=== PATIENT | male | born 1955 | race Caucasian/White ===

== ENCOUNTER 2018-07-24 22:09 | Inpatient (IN) ==
[2018-07-24 22:41] LABS: Microscopic, Urine URINE MICROSCOPIC (MICROSCOPIC)
[2018-07-24 22:43] LABS: Basophils % 1.1 % (0.1-2.0); Eosinophils % 0.4 % (0.1-12.0); Lymphocytes # 0.3 K/mm3 (0.7-4.5); Mean Corpuscular Hemoglobin 31.9 pg (27.0-31.2); Mean Corpuscular Volume 102.9 fl (80-94); Mean Platelet Volume 9.6 fl (7.4-10.4); Monocytes # 0.1 K/mm3 (0.1-1.0); Monocytes % 3.6 % (1.7-9.3); Neutrophils # 1.8 K/mm3 (1.8-7.8); Neutrophils % 79.9 % (37.0-80.0); Platelet Count 110 K/mm3 (142-424); Red Blood Count 2.03 M/mm3 (4.60-6.20); Red Cell Distribution Width 20.3 % (11.5-17.5); White Blood Count 2.2 K/mm3 (4.8-10.8)
[2018-07-24 22:44] LABS: Appearance,Urine CLEAR (Clear); Bilirubin,Urine Negative (Negative); Blood, Urine TRACE-L (Negative); Color,Urine YELLOW (Yellow); Glucose,Urine (UA) Negative (Negative); Ketones,Urine Negative (Negative); Leukocyte Esterase,Urine Negative (Negative); PH,Urine 5.5 (5.0-8.5); Protein,Urine TRACE (Negative); Specific Gravity, Urine 1.025 (1.005-1.030)
[2018-07-24 22:46] LABS: Hematocrit 20.9 % (42.0-52.0); Hemoglobin 6.5 g/dL (14.1-18.0)
--- NOTE | 2018-07-24 22:59 | Emergency Department Note ---
ED Disposition Clinical Impression: Severe sepsis, Septic shock, Thrombocytopenia, Renal insufficiency, Elevated erythrocyte sedimentation rate, Elevated C-reactive protein (CRP), Hepatomegaly, Splenomegaly, Elevated alkaline phosphatase level, Pleural effusion, Pulmonary mass, Aorto-iliac atherosclerosis, Osseous metastasis, Adenopathy Hypothyroidism Qualifiers: Hypothyroidism type: acquired Qualified Code(s): E03.9 - Hypothyroidism, unspecified Anemia Qualifiers: Anemia type: unspecified type Qualified Code(s): D64.9 - Anemia, unspecified Leukopenia Qualifiers: Leukopenia type: unspecified Qualified Code(s): D72.819 - Decreased white blood cell count, unspecified Schizophrenia Qualifiers: Schizophrenia type: unspecified Qualified Code(s): F20.9 - Schizophrenia, unspecified Hyperlipidemia Qualifiers: Hyperlipidemia type: unspecified Qualified Code(s): E78.5 - Hyperlipidemia, unspecified Disposition: Admitted As Inpatient Condition on Discharge: Critical Referrals: Shayne Black MD [Primary Care Provider] - - Critical Care Critical Care Time: Yes Attestation: On 07/24/18, the high probability of a clinically significant, sudden or life threatening deterioration of the following system(s) required my full and direct attention, intervention and personal management. The time I documented below is in addition to time spent performing reported procedures but includes the following listed in this critical care notation. Total Critical Care Time: 90 Vital system(s) involved:: Shock (Septic) My critical care processes included: Assessment & monitoring of V/S, Initial and Re-exams, Data Review/Interpretation, Coordinating Care, Medication Orders and management, Documentation Medical Decision Making - Medical Records Medical records reviewed: Yes: I reviewed the patient's medical records. - Smith Inquiry Pt receiving controlled substance: No Vital Signs: 07/24/18 22:09 07/24/18 22:47 07/25/18 00:16 Temperature 99.6 F 98.1 F Temperature Source Rectal Oral Pulse Rate [Right Radial] 108 H 97 H 83 Respiratory Rate 18 18 17 Blood Pressure [Right Arm] 101/58 L 91/49 L 91/55 L Blood Pressure Mean [Right Arm] 72 63 67 Blood Pressure Source [Right Arm] Automatic Cuff Automatic Cuff Blood Pressure Position [Right Arm] Sitting Supine 02 Sat by Pulse Oximetry 97 97 99 Oxygen Delivery Method Room Air Oxygen Flow Rate (LPM) 07/25/18 00:35 07/25/18 01:55 07/25/18 02:08 Temperature 98.8 F Temperature Source Oral Pulse Rate [Right Radial] 82 82 81 Respiratory Rate 22 18 18 Blood Pressure [Right Arm] 91/52 L 86/55 L 88/57 L Blood Pressure Mean [Right Arm] 65 65 67 Blood Pressure Source [Right Arm] Automatic Cuff Automatic Cuff Automatic Cuff Blood Pressure Position [Right Arm] Supine Sitting Supine 02 Sat by Pulse Oximetry 98 99 99 Oxygen Delivery Method Nasal Cannula Nasal Cannula Oxygen Flow Rate (LPM) 2 07/25/18 02:30 07/25/18 03:00 07/25/18 03:46 Temperature Temperature Source Pulse Rate [Right Radial] 90 87 86 Respiratory Rate 16 Blood Pressure [Right Arm] 83/45 L 71/48 L 89/53 L Blood Pressure Mean [Right Arm] 57 55 65 Blood Pressure Source [Right Arm] Blood Pressure Position [Right Arm] 02 Sat by Pulse Oximetry 93 L 96 96 Oxygen Delivery Method Room Air Oxygen Flow Rate (LPM) - Lab Data Lab results reviewed: Yes: I reviewed the patient's lab results. Lab Results 07/24/18 22:34: Urine Color Yellow, Urine Appearance Clear, Urine pH 5.5, Ur Specific [place] 1.025, Urine Protein Trace, Urine Glucose (UA) Negative, Urine Ketones Negative, Urine Blood Trace-l, Urine Nitrate Negative, Urine Bilirubin Negative, Urine Urobilinogen 2.0, Ur Leukocyte Esterase Negative, Urine WBC 3-5, Ur Squamous Epith Cells Occasional, Urine Bacteria Trace, Urine Mucus Trace 07/24/18 22:34: WBC 2.2 L, RBC 2.03 L, Hgb 6.5 L*, Hct 20.9 L*, MCV 102.9 H, MCH 31.9 H, MCHC 31.0 L, RDW 20.3 H, Plt Count 110 L, MPV 9.6, Neut % (Auto) 79.9, Lymph % (Auto) 15.0, [place] % (Auto) 3.6, Eos % (Auto) 0.4, Baso % (Auto) 1.1, Neut # (Auto) 1.8, Lymph # (Auto) 0.3 L, [place] # (Auto) 0.1, Eos # (Auto) 0.0, Baso # (Auto) 0.0, ESR 87 H 07/24/18 22:34: Sodium 135 L, Potassium 3.8, Chloride 100, Carbon Dioxide 18 L, Anion Gap 20.8 H, BUN 21 H, Creatinine 1.55 H, Estimated Creat Clear 48, Estimated GFR 46 L, Est GFR ( Amer) 55 L, Glucose 141 H, Calcium 9.4, Total Bilirubin 0.8, AST 148 H, ALT 52, Alkaline Phosphatase 293 H, Troponin I < 0.02, C-Reactive Protein 5.3 H, Total Protein 5.8 L, Albumin 2.1 L, Globulin 3.7 H, Albumin/Globulin Ratio 0.6 L 07/24/18 22:34: Lactate 7.3 H 07/24/18 22:34: TSH 5.67 H, Thyroxine (T4) 5.8 07/24/18 22:34: Amylase 44, Lipase 59 L 07/25/18 00:00: Influenza Type A Ag Negative, Influenza Type B Ag Negative 07/25/18 01:25: Stool Occult Blood Negative 07/25/18 02:05: Lactate 3.7 H Result diagrams: 07/24/18 22:34 07/24/18 22:34 Orders (Tests/Meds): ED MEDICATIONS Generic Name Dose Route Start Last Admin Trade Name Freq PRN Reason Stop Dose Admin Sodium Chloride 1,000 mls @ 999 mls/hr 07/24/18 22:15 07/25/18 00:18 Sod Chlor 0.9% 1000ml Bag IV 07/24/18 23:15 999 mls/hr .Q1H1M ASHIA Administration Lactated Ringer's 1,000 mls @ 999 mls/hr 07/24/18 22:45 07/24/18 22:32 Lactated Ringer's 1000 Ml Bag IV 07/24/18 23:45 999 mls/hr .Q1H1M ASHIA Administration Sodium Chloride 500 mls @ 999 mls/hr 07/25/18 00:45 07/25/18 01:58 Sod Chlor 0.9% 1000ml Bag IV 07/25/18 01:15 Not Given .Q31M ASHIA Sodium Chloride 10 ml 07/24/18 22:15 Saline Flush 10ml Syringe IV 08/23/18 22:14 NEEDED PRN Maintain IV Site Discontinued Medications Generic Name Dose Route Start Last Admin Trade Name Freq PRN Reason Stop Dose Admin Sodium Chloride 2,040 mls @ 1,020 mls/hr 07/25/18 00:49 07/25/18 00:51 Sod Chlor 0.9% 1000ml Bag 30 ml/kg infuse over 2 hr (2040 ml) 07/25/18 02:48 1,020 mls/hr IV Administration .Q2H ONE Ioversol 75 ml 07/25/18 03:48 07/24/18 23:40 Rad-Optiray 350 100ml Vial IV 07/25/18 03:49 75 ml ONCE ONE Administration Protocol Sodium Chloride 10 ml 07/25/18 03:48 07/24/18 23:45 Rad-Saline Flush 10ml Syringe IV 07/25/18 03:49 10 ml ONCE ONE Administration ORDERS Category Date Time Status CT abdomen pelvis w con Stat Cat Scan 07/24/18 22:[address] chest w con Routine Cat Scan 07/24/18 23:43 Ordered XR chest portable Stat Exams 07/25/18 Taken Diarrhea 6-11 Panel, Cdiff PCR Stat Lab 07/24/18 22:17 Ordered Peripheral Smear Review Routine Lab 07/24/18 22:34 Received Blood Culture Stat Micro 07/24/18 22:34 Received - Radiology Data #1 Image Reviewed: Yes I reviewed the patient's radiology image Preliminary Findings: Abnormal (prob mass) - CT Data CT Scan: Abdomen, Pelvis, Chest Time Received: 03:[address] Reviewed: Yes: I have viewed the radiologist's interpretation Preliminary Findings: Abnormal (see report ) - ECG Data Tracing #1 Arrhythmias present: sinus tach Ischemic changes: non-specific ST-T wave changes - Tissue Perfus/Sepsis Re-Eval Reperfusion Exam Performed: Yes Date Performed: 07/25/18 Time Performed: 03:00 Sepsis Follow-Up: Yes: Respiratory exam, Cardiovascular exam, Peripheral pulse strength, Peripheral pulse location, Skin exam Weakness HPI - General Chief complaint: Weakness Stated complaint: WEAKNESS Time Seen by Provider: 07/24/18 22:15 Mode of Arrival: EMS Source of Information: Patient, EMS, Medical Record Limitations: Physical Limitations Description of Symptoms (Recalled from ER Triage Doc. by RN): PT PRESENTS TO ED WITH C/O DIARRHEA THAT BEGAN TODAY. PT STATES HE SAT ON THE TOILET FOR APPROX 2 HOURS HAVING DIARRHEA AND WAS UNABLE TO GET UP ON HIS OWN. PT STATES HE IS GENERALLY WEAK AND FEELS TERRIBLE. - History of Present Illness HPI Narrative: pt sent from long-term for progressive weakness - pt denied any specific pain and no vomiting or diarrhea - pt has schizo and throid disease and hx of tob use MD Complaint: generalized weakness Onset (ago): day(s) Duration: constant Location: generalized Severity: moderate Associated symptoms: loss of appetite - Related Data Home Medications Medication Instructions Recorded Confirmed Atorvastatin Calcium [Atorvastatin 10 mg PO DAILY 07/24/18 07/24/18 10mg Tab] Levothyroxine Sodium 50 mcg PO DAILY 07/24/18 07/24/18 [Levothyroxine 50mcg (0.05mg) Tab] Omeprazole [Omeprazole 20mg Tab] 20 mg PO DAILY 07/24/18 07/24/18 risperiDONE [Risperidone] 0.5 mg PO BID 07/24/18 07/24/18 Allergies Allergy/AdvReac Type Severity Reaction Status Date / Time No Known Allergies Allergy Verified 07/24/18 22:15 [facility] History - Hepatitis A Screen Drug use history?: No High risk sexual behaviors?: No History of sexually transmitted infection?: No Currently employed?: No Childcare worker?: No Do you have indoor plumbing?: Yes Do you have electricity?: Yes Attestation statement:: This patient has been screened for Hepatitis A risk factors. I have reviewed the patient's past medical history: Yes Medical History: Denies:: Cancer, Diabetes Mellitus Type 1, Diabetes Mellitus Type 2, MRSA Amputation: No - Social History Smoking Status: Current every day smoker # Packs/Day (cigarettes): 1 Alcohol Intake: never Occupational Status: disabled Housing: assisted living facility - Psychiatric History Expresses thoughts of harming self/others: None Suicide Plan Description: No Plan ROS Obtained: Yes All systems reviewed & no additional complaints - Constitutional Constitutional: Denies fever(s), Reports weakness - Eyes Eyes: Denies change in vision - ENT Ears, Nose, Mouth, and Throat: Denies sore throat - Cardiovascular Cardiovascular: Denies chest pain - Respiratory Respiratory: No cough - Gastrointestinal Gastrointestingal: Reports: nausea. Denies: abdominal pain, diarrhea - Genitourinary Male Genitourinary: Denies hematuria - Musculoskeletal Musculoskeletal: Denies joint pain - Integumentary/Breasts Skin/Breast: Denies rash - Neurologic Neurologic: Denies seizure-like activity Physical Exam - General General appearance: in no apparent distress, cachectic - Head Head exam: normocephalic - Eye Eye exam: Present: PERRL, EOMI. Absent: scleral icterus - ENT ENT exam: Present: mucous membranes dry - Neck Neck exam: Present: trachea midline - Respiratory Respiratory exam: Present: other (dec bs bilat ). Absent: respiratory distress - Cardiovascular Cardiovascular exam: Present: regular rate, systolic murmur, +S4 - Abdominal Exam Abdominal exam: Present: soft, organomegaly. Absent: guarding, ascites - Extremities Exam Extremities exam: Absent: calf tenderness - Back Exam Back exam: Absent: CVA tenderness (L) - Neurological Exam Neurological exam: Present: alert, CN II-XII intact - Psychiatric Psychiatric exam: Present: flat affect - Skin Skin exam: Absent: rash
[2018-07-24 23:00] LABS: Alanine Aminotransferase 52 U/L (12-78); Albumin Level 2.1 gm/dL (3.4-5.0); Albumin/Globulin Ratio 0.6 (1.1-1.8); Alkaline Phosphatase 293 U/L (46-116); Anion Gap 20.8 mEq/L (5-15); Bilirubin,Total 0.8 mg/dL (0.2-1.0); Blood Urea Nitrogen 21 mg/dL (7-18); C-Reactive Protein 5.3 mg/L (0.0-0.9); Calcium 9.4 mg/dL (8.5-10.1); Carbon Dioxide 18 mmol/L (21.0-32.0); Chloride 100 mmol/L (98-107); Globulin 3.7 gm/dl (1.3-3.2); Glucose 141 mg/dL (74-106); Sodium 135 mmol/L (136-145); Total Protein,Serum 5.8 gm/dL (6.4-8.2)
[2018-07-24 23:04] LABS: Potassium 3.8 mmoL/L (3.5-5.1)
[2018-07-24 23:05] LABS: Aspartate Amino Transferase 148 U/L (15-37)
[2018-07-24 23:16] LABS: Bacteria,Urine Trace /lpf; Mucus,Urine Trace /lpf; Squamous Epithelial Cell,Urine Occasional #/hpf (0-5)
[2018-07-24 23:32] LABS: Amylase 44 U/L (25-115); Lipase 59 u/L (73-393)
[2018-07-24 23:39] LABS: Thyroid Stimulating Hormone 5.67 uIU/ml (0.358-3.740)
[2018-07-24 23:58] LABS: Erythrocyte Sedimentation Rate 87 mm/hr (0-20)
[2018-07-25 06:14] LABS: Anion Gap 16.4 mEq/L (5-15); Potassium 3.4 mmoL/L (3.5-5.1)
--- NOTE | 2018-07-25 08:11 | Pharmacy Consult Notes ---
[facility] Pharmacy VTE Monitoring - Patient Demographics Admission date: 07/25/18 Report Date: 07/25/18 Time: 08:11 Allergies/Adverse Reactions: Patient Allergies No Known Allergies Allergy (Verified 07/24/18 22:15) Height: 1.88 m Weight: 61.887 kg Patient Problems: Current Active Problems Severe sepsis (Acute) Septic shock (Acute) Hypothyroidism (Acute) Anemia (Acute) Leukopenia (Acute) Thrombocytopenia (Acute) Renal insufficiency (Acute) Elevated erythrocyte sedimentation rate (Acute) Elevated C-reactive protein (CRP) (Acute) Schizophrenia (Acute) Hyperlipidemia (Acute) Hepatomegaly (Acute) Splenomegaly (Acute) Elevated alkaline phosphatase level (Acute) Pleural effusion (Acute) Pulmonary mass (Acute) Aorto-iliac atherosclerosis (Acute) Osseous metastasis (Acute) Adenopathy (Acute) - VTE Risk Labs: VTE Related Lab Results Hgb 6.5 g/dL (14.1-18.0) L* 07/24/18 22:34 Hct 20.9 % (42.0-52.0) L* 07/24/18 22:34 Plt Count 110 K/mm3 (142-424) L 07/24/18 22:34 BUN 18 mg/dL (7-18) 07/25/18 05:30 Creatinine 1.19 mg/dL (0.70-1.30) D 07/25/18 05:30 Estimated Creat Clear 63 mL/min (50-200) 07/25/18 05:30 Clinical Trial Participant: No - Prophylaxis VTE Prophylaxis Ordered?: Yes Types of VTE Prophylaxis: TEDS Knee High
--- NOTE | 2018-07-25 12:08 | History & Physical Report ---
*Admission Date: 07/25/18 *Chief complaint: weakness *History of present illness: this wm was sent from intermediate with weakness which pt stated started today -he denied fever/cough/chest pain and he denied to me diarrhea or vomiting - does have some wt loss and no diabetes reported - he was found in the ed to have sig anemia and prob metastatic disease - pt admitted for eval and treatment [facility] History I have reviewed the patient's past medical history: Yes Medical History: Reports:: Cancer Denies:: Diabetes Mellitus Type 1, Diabetes Mellitus Type 2, MRSA *Have you ever received a pneumonia vaccine?: No (unknown) *Have you received a flu vaccine this season?: No (unknown) Other Surgeries: Yes: Colonoscopy Amputation: No - *Social History Smoking Status: Current every day smoker # Packs/Day (cigarettes): 1 Alcohol Intake: never *Occupational Status:: disabled Housing: assisted living facility *Travel in the last 8 weeks: None - Psychiatric History Expresses thoughts of harming self/others: None Suicide Plan Description: No Plan Family Hx:: Unable to obtain Review of Systems - Review of Systems Review of systems:: pertinent systems reviewed and negative unless documented below - Constitutional Reports fatigue, Reports weight loss - Eyes Denies change in vision - ENT Denies sore throat - *Cardiovascular Denies chest pain - *Respiratory Reports cough, Denies shortness of breath - *Gastrointestinal Reports nausea, Denies abdominal pain - *Musculoskeletal Denies joint pain - Integumentary/Breasts Denies rash - *Neurologic Reports weakness, Denies seizure-like activity Meds Home Medications Medication Instructions Recorded Confirmed Type Atorvastatin Calcium [Atorvastatin 10 mg PO DAILY 07/24/18 07/25/18 History 10mg Tab] Levothyroxine Sodium 50 mcg PO DAILY 07/24/18 07/25/18 History [Levothyroxine 50mcg (0.05mg) Tab] Omeprazole [Omeprazole 20mg Tab] 20 mg PO DAILY 07/24/18 07/25/18 History risperiDONE [Risperidone] 0.5 mg PO BID 07/24/18 07/25/18 History Acetaminophen [Acetaminophen 325mg 650 mg PO Q6HP PRN 07/25/18 07/25/18 History tab] Albuterol Sulfate [Proair Hfa 2 puffs IH Q6HP PRN 07/25/18 07/25/18 History 90mcg/puff Inh] Allergies Allergy/AdvReac Type Severity Reaction Status Date / Time No Known Allergies Allergy Verified 07/24/18 22:15 Exam Vital signs and Labs for Last 24 Hours: Temp Pulse Resp BP Pulse Ox 97.1 F L 88 18 115/81 98 07/25/18 12:00 07/25/18 12:00 07/25/18 12:00 07/25/18 12:00 07/25/18 12:00 Laboratory Results - last 24 hr 07/24/18 22:34: Urine Color Yellow, Urine Appearance Clear, Urine pH 5.5, Ur Specific [place] 1.025, Urine Protein Trace, Urine Glucose (UA) Negative, Urine Ketones Negative, Urine Blood Trace-l, Urine Nitrate Negative, Urine Bilirubin Negative, Urine Urobilinogen 2.0, Ur Leukocyte Esterase Negative, Urine WBC 3-5, Ur Squamous Epith Cells Occasional, Urine Bacteria Trace, Urine Mucus Trace 07/24/18 22:34: WBC 2.2 L, RBC 2.03 L, Hgb 6.5 L*, Hct 20.9 L*, MCV 102.9 H, MCH 31.9 H, MCHC 31.0 L, RDW 20.3 H, Plt Count 110 L, MPV 9.6, Neut % (Auto) 79.9, Lymph % (Auto) 15.0, [place] % (Auto) 3.6, Eos % (Auto) 0.4, Baso % (Auto) 1.1, Neut # (Auto) 1.8, Lymph # (Auto) 0.3 L, [place] # (Auto) 0.1, Eos # (Auto) 0.0, Baso # (Auto) 0.0, ESR 87 H 07/24/18 22:34: Sodium 135 L, Potassium 3.8, Chloride 100, Carbon Dioxide 18 L, Anion Gap 20.8 H, BUN 21 H, Creatinine 1.55 H, Estimated Creat Clear 48, Estimated GFR 46 L, Est GFR ( Amer) 55 L, Glucose 141 H, Calcium 9.4, Total Bilirubin 0.8, AST 148 H, ALT 52, Alkaline Phosphatase 293 H, Troponin I < 0.02, C-Reactive Protein 5.3 H, Total Protein 5.8 L, Albumin 2.1 L, Globulin 3.7 H, Albumin/Globulin Ratio 0.6 L 03/26/19 22:34: Lactate 7.3 H 07/24/18 22:34: TSH 5.67 H, Thyroxine (T4) 5.8 07/24/18 22:34: Amylase 44, Lipase 59 L 07/25/18 00:00: Influenza Type A Ag Negative, Influenza Type B Ag Negative 07/25/18 01:25: Stool Occult Blood Negative 07/25/18 02:05: Lactate 3.7 H 07/25/18 04:15: Blood Type O Positive, Antibody Screen Negative, Crossmatch (AHG) See Detail 07/25/18 04:15: Lactate 3.4 H 07/25/18 05:30: Sodium 136, Potassium 3.4 L, Chloride 102, Carbon Dioxide 21, Anion Gap 16.4 H, BUN 18, Creatinine 1.19 D, Estimated Creat Clear 63, Estimated GFR 62, Est GFR ( Amer) 75 D, Glucose 139 H, Calcium 9.0, Magnesium 1.4 07/25/18 05:30: Blood Type Confirm O Positive I & O for Last 24 hours: Intake & Output 07/23/18 07/24/18 07/25/18 07/26/18 11:59 11:59 11:59 11:59 Intake Total 4490 / 4490 Output Total 150 / 150 Balance 4340 / 4340 Weight 136 lb 7 oz - Constitutional no acute distress, cachectic, cooperative - *Routine HEENT Exam Head: Present: normocephalic Eye: Present: EOMI, PERRL. Absent: conjunctival icterus ENT: Present: mucous membranes dry - *Routine Neck Exam Present: supple. Absent: JVD - *Routine Respiratory Exam Present: decreased breath sounds - *Routine Cardiovascular Exam Present: RRR, murmur. Absent: rubs - *Routine Abdominal Exam Present: soft - *Routine Extremities Exam Absent: Christian's sign, joint swelling - *Routine Skin Exam Present: intact - *Routine Neurological Exam Present: alert, oriented X3, CN II-XII intact. Absent: sensory deficit, motor deficit - Routine Psychiatric Exam Present: unable to assess Assessment and Plan (1) Tobacco use Current visit: Yes Status: Acute Category: Medical Code(s): Z72.0 - Tobacco use (2) Severe sepsis Current visit: Yes Status: Acute Category: Medical Code(s): A41.9 - Sepsis, unspecified organism; R65.20 - Severe sepsis without septic shock (3) Septic shock Current visit: Yes Status: Acute Category: Medical Code(s): A41.9 - Sepsis, unspecified organism; R65.21 - Severe sepsis with septic shock (4) Hypothyroidism Current visit: Yes Status: Acute Qualifiers: Hypothyroidism type: acquired Qualified Code(s): E03.9 - Hypothyroidism, unspecified Category: Medical Code(s): E03.9 - Hypothyroidism, unspecified (5) Anemia Current visit: Yes Status: Acute Qualifiers: Anemia type: unspecified type Qualified Code(s): D64.9 - Anemia, unspecified Category: Medical Code(s): D64.9 - Anemia, unspecified (6) Leukopenia Current visit: Yes Status: Acute Qualifiers: Leukopenia type: unspecified Qualified Code(s): D72.819 - Decreased white blood cell count, unspecified Category: Medical Code(s): D72.819 - Decreased white blood cell count, unspecified (7) Thrombocytopenia Current visit: Yes Status: Acute Category: Medical Code(s): D69.6 - Thrombocytopenia, unspecified (8) Renal insufficiency Current visit: Yes Status: Acute Category: Medical Code(s): N28.9 - Disorder of kidney and ureter, unspecified (9) Elevated erythrocyte sedimentation rate Current visit: Yes Status: Acute Category: Medical Code(s): R70.0 - Elevated erythrocyte sedimentation rate (10) Elevated C-reactive protein (CRP) Current visit: Yes Status: Acute Category: Medical Code(s): R79.82 - Elevated C-reactive protein (CRP) (11) Schizophrenia Current visit: Yes Status: Acute Qualifiers: Schizophrenia type: unspecified Qualified Code(s): F20.9 - Schizophrenia, unspecified Category: Medical Code(s): F20.9 - Schizophrenia, unspecified (12) Hyperlipidemia Current visit: Yes Status: Acute Qualifiers: Hyperlipidemia type: unspecified Qualified Code(s): E78.5 - Hyperlipidemia, unspecified Category: Medical Code(s): E78.5 - Hyperlipidemia, unspecified (13) Hepatomegaly Current visit: Yes Status: Acute Category: Medical Code(s): R16.0 - Hepatomegaly, not elsewhere classified (14) Splenomegaly Current visit: Yes Status: Acute Category: Medical Code(s): R16.1 - Splenomegaly, not elsewhere classified (15) Elevated alkaline phosphatase level Current visit: Yes Status: Acute Category: Medical Code(s): R74.8 - Abnormal levels of other serum enzymes (16) Pleural effusion Current visit: Yes Status: Acute Category: Medical Code(s): J90 - Pleural effusion, not elsewhere classified (17) Pulmonary mass Current visit: Yes Status: Acute Category: Medical Code(s): R91.8 - Other nonspecific abnormal finding of lung field (18) Aorto-iliac atherosclerosis Current visit: Yes Status: Acute Category: Medical Code(s): I70.0 - Atherosclerosis of aorta; I70.299 - Other atherosclerosis of [place] arteries of extremities, unspecified extremity (19) Osseous metastasis Current visit: Yes Status: Acute Category: Medical Code(s): C79.51 - Secondary malignant neoplasm of bone (20) Adenopathy Current visit: Yes Status: Acute Category: Medical Code(s): R59.1 - Generalized enlarged lymph nodes
[2018-07-25 15:22] LABS: Basophils % 1.2 % (0.1-2.0); Hematocrit 27.2 % (42.0-52.0); Lymphocytes # 0.4 K/mm3 (0.7-4.5); Lymphocytes % 14.4 % (10-50); Mean Corpuscular HGB Conc 31.1 g/dL (31.8-35.4); Mean Corpuscular Hemoglobin 29.9 pg (27.0-31.2); Mean Platelet Volume 9.3 fl (7.4-10.4); Monocytes # 0.1 K/mm3 (0.1-1.0); Monocytes % 4.9 % (1.7-9.3); Neutrophils % 78.5 % (37.0-80.0); Platelet Count 97 K/mm3 (142-424); Red Blood Count 2.83 M/mm3 (4.60-6.20); Red Cell Distribution Width 24.5 % (11.5-17.5); White Blood Count 2.6 K/mm3 (4.8-10.8)
[2018-07-25 15:30] LABS: Activated Partial Thrombo Time 27.4 seconds (23.6-34.0); INR 1.2 (0.9-1.1); Prothrombin Time 12.3 seconds (9.4-11.8)
[2018-07-25 16:24] LABS: Hemoglobin 8.5 g/dL (14.1-18.0)
--- NOTE | 2018-07-26 09:51 | Progress Note ---
Internal Medicine - PN: Subj *Date: 07/26/18 *Time: 09:50 Exam Vital signs and Labs for Last 24 Hours: Temp Pulse Resp BP Pulse Ox 97.7 F 89 18 100/59 L 96 07/26/18 07:42 07/26/18 07:42 07/26/18 07:42 07/26/18 07:42 07/26/18 08:00 Laboratory Results - last 24 hr 07/25/18 04:15: Blood Type O Positive, Antibody Screen Negative, Crossmatch (AHG) See Detail 07/25/18 13:28: Stl Aeromonas (PCR) Not detected, Stl C. cayetanensis PCR Not detected, Stool Rotavirus (PCR) Not detected, Stl Adenov F 40/41 PCR Not detected, Stool Astrovirus (PCR) Not detected, Stool Campylobacter PCR Not detected, Stl C.difficile Tox PCR Not detected, Stool Cryptosporidium PCR Not detected, Stl E.coli Shiga Tox PCR Not detected, Stool E coli O157 PCR Not detected, Stl Enterotoxigenic E PCR Not detected, Stool EPEC (PCR) Not detected, Stool EAEC (PCR) Not detected, Stl E. histolytica PCR Not detected, Stool Giardia Lamblia PCR Not detected, Stool Salmonella PCR Not detected, Stool Sapovirus (PCR) Not detected, Stl P. shigelloides PCR Not detected, Stl Shigella/EIEC PCR Not detected, St Y.enterocolitica PCR Not detected, Stool Vibrio (PCR) Not detected, Stl Vibrio cholerae PCR Not detected, Stl Norovirus GI/GII PCR Not detected 07/25/18 15:05: WBC 2.6 L, RBC 2.83 L D, Hgb 8.5 L D, Hct 27.2 L, MCV 96.0 H, MCH 29.9, MCHC 31.1 L, RDW 24.5 H, Plt Count 97 L, MPV 9.3, Neut % (Auto) 78.5, Lymph % (Auto) 14.4, [place] % (Auto) 4.9, Eos % (Auto) 1.0, Baso % (Auto) 1.2, Neut # (Auto) 2.0, Lymph # (Auto) 0.4 L, [place] # (Auto) 0.1, Eos # (Auto) 0.0, Baso # (Auto) 0.0 07/25/18 15:05: PT 12.3 H, INR 1.20 H, APTT 27.4 I & O for Last 24 hours: Intake & Output 07/23/18 07/24/18 07/25/18 07/26/18 11:59 11:59 11:59 11:59 Intake Total 4490 / 4490 3490 / 3490 Output Total 150 / 150 300 / 300 Balance 4340 / 4340 3190 / 3190 Weight 136 lb 7 oz 147 lb 4 oz - Constitutional thin, chronically ill appearing - *Routine HEENT Exam Head: Present: normocephalic Eye: Present: EOMI, PERRL ENT: Present: mucous membranes moist - *Routine Neck Exam Present: supple. Absent: lymphadenopathy - *Routine Respiratory Exam Present: CTA bilaterally - *Routine Cardiovascular Exam Present: RRR - *Routine Abdominal Exam Present: soft, normoactive bowel sounds. Absent: tenderness - *Routine Extremities Exam Absent: cyanosis, clubbing, edema - *Routine Skin Exam Present: warm. Absent: rash - *Routine Neurological Exam Present: alert, oriented X3 Assessment and Plan (1) Tobacco use Current visit: Yes Status: Acute Category: Medical Code(s): Z72.0 - Tobacco use (2) Severe sepsis Current visit: Yes Status: Acute Category: Medical Code(s): A41.9 - Sepsis, unspecified organism; R65.20 - Severe sepsis without septic shock (3) Septic shock Current visit: Yes Status: Acute Category: Medical Code(s): A41.9 - S epsis, unspecified organism; R65.21 - Severe sepsis with septic shock (4) Hypothyroidism Current visit: Yes Status: Acute Qualifiers: Hypothyroidism type: acquired Qualified Code(s): E03.9 - Hypothyroidism, unspecified Category: Medical Code(s): E03.9 - Hypothyroidism, unspecified (5) Anemia Current visit: Yes Status: Acute Qualifiers: Anemia type: unspecified type Qualified Code(s): D64.9 - Anemia, unspecified Category: Medical Code(s): D64.9 - Anemia, unspecified (6) Leukopenia Current visit: Yes Status: Acute Qualifiers: Leukopenia type: unspecified Qualified Code(s): D72.819 - Decreased white blood cell count, unspecified Category: Medical Code(s): D72.819 - Decreased white blood cell count, unspecified (7) Thrombocytopenia Current visit: Yes Status: Acute Category: Medical Code(s): D69.6 - Thrombocytopenia, unspecified (8) Renal insufficiency Current visit: Yes Status: Acute Category: Medical Code(s): N28.9 - Disorder of kidney and ureter, unspecified (9) Elevated erythrocyte sedimentation rate Current visit: Yes Status: Acute Category: Medical Code(s): R70.0 - Elevated erythrocyte sedimentation rate (10) Elevated C-reactive protein (CRP) Current visit: Yes Status: Acute Category: Medical Code(s): R79.82 - Elevated C-reactive protein (CRP) (11) Schizophrenia Current visit: Yes Status: Acute Qualifiers: Schizophrenia type: unspecified Qualified Code(s): F20.9 - Schizophrenia, unspecified Category: Medical Code(s): F20.9 - Schizophrenia, unspecified (12) Hyperlipidemia Current visit: Yes Status: Acute Qualifiers: Hyperlipidemia type: unspecified Qualified Code(s): E78.5 - Hyperlipidemia, unspecified Category: Medical Code(s): E78.5 - Hyperlipidemia, unspecified (13) Hepatomegaly Current visit: Yes Status: Acute Category: Medical Code(s): R16.0 - Hepatomegaly, not elsewhere classified (14) Splenomegaly Current visit: Yes Status: Acute Category: Medical Code(s): R16.1 - Splenomegaly, not elsewhere classified (15) Elevated alkaline phosphatase level Current visit: Yes Status: Acute Category: Medical Code(s): R74.8 - Abnormal levels of other serum enzymes (16) Pleural effusion Current visit: Yes Status: Acute Category: Medical Code(s): J90 - Pleural effusion, not elsewhere classified (17) Pulmonary mass Current visit: Yes Status: Acute Category: Medical Code(s): R91.8 - Other nonspecific abnormal finding of lung field (18) Aorto-iliac atherosclerosis Current visit: Yes Status: Acute Category: Medical Code(s): I70.0 - Atherosclerosis of aorta; I70.299 - Other atherosclerosis of [place] arteries of extremities, unspecified extremity (19) Osseous metastasis Current visit: Yes Status: Acute Category: Medical Code(s): C79.51 - Secondary malignant neoplasm of bone (20) Adenopathy Current visit: Yes Status: Acute Category: Medical Code(s): R59.1 - Generalized enlarged lymph nodes - Assessment and plan all Dx Assessment and Plan for all problems:: Rounded with Dr. Black all orders per Wayne consult nitin
--- NOTE | 2018-07-26 12:33 | Consult Report ---
*Admission Date: 07/25/18 *Chief complaint: abnormal scan and labs *History of present illness: 62 yo wm admitted for further eval for anemia and abnl scans. he had a ct scan that demonstrated diffuse lad, skeletal lesions, liver lesions, and splenomegaly. I believe he had bx yesterday that is pending. pt reports 30 lb weight loss. he reports feeling faituged and generalized weakness. his hgb on admission was 6. he has been transfused. [facility] History Medical History: Reports:: Cancer Denies:: Diabetes Mellitus Type 1, Diabetes Mellitus Type 2, MRSA *Have you ever received a pneumonia vaccine?: No (unknown) *Have you received a flu vaccine this season?: No (unknown) Other Surgeries: Yes: Colonoscopy Amputation: No - *Social History Smoking Status: Current every day smoker # Packs/Day (cigarettes): 1 Alcohol Intake: never *Occupational Status:: disabled Housing: assisted living facility *Travel in the last 8 weeks: None - Psychiatric History Expresses thoughts of harming self/others: None Suicide Plan Description: No Plan Family Hx:: Unable to obtain Review of Systems - Constitutional Reports body ache(s), Reports fatigue, Reports weight loss - *Respiratory Reports shortness of breath - *Musculoskeletal Reports abnormal walking - *Neurologic Reports weakness, Denies seizure-like activity - Hematologic/Lymphatic Reports enlarged lymph nodes Meds Home Medications Medication Instructions Recorded Confirmed Type Atorvastatin Calcium [Atorvastatin 10 mg PO DAILY 07/24/18 07/25/18 History 10mg Tab] Levothyroxine Sodium 50 mcg PO DAILY 07/24/18 07/25/18 History [Levothyroxine 50mcg (0.05mg) Tab] Omeprazole [Omeprazole 20mg Tab] 20 mg PO DAILY 07/24/18 07/25/18 History risperiDONE [Risperidone] 0.5 mg PO BID 07/24/18 07/25/18 History Acetaminophen [Acetaminophen 325mg 650 mg PO Q6HP PRN 07/25/18 07/25/18 History tab] Albuterol Sulfate [Proair Hfa 2 puffs IH Q6HP PRN 07/25/18 07/25/18 History 90mcg/puff Inh] Allergies Allergy/AdvReac Type Severity Reaction Status Date / Time No Known Allergies Allergy Verified 07/24/18 22:15 Exam Vital signs and Labs for Last 24 Hours: Temp Pulse Resp BP Pulse Ox 97.7 F 89 18 100/59 L 96 07/26/18 07:42 07/26/18 07:42 07/26/18 07:42 07/26/18 07:42 07/26/18 08:00 Laboratory Results - last 24 hr 07/25/18 04:15: Crossmatch (AHG) See Detail 07/25/18 13:28: Stl Aeromonas (PCR) Not detected, Stl C. cayetanensis PCR Not detected, Stool Rotavirus (PCR) Not detected, Stl Adenov F 40/41 PCR Not detected, Stool Astrovirus (PCR) Not detected, Stool Campylobacter PCR Not detected, Stl C.difficile Tox PCR Not detected, Stool Cryptosporidium PCR Not detected, Stl E.coli Shiga Tox PCR Not detected, Stool E coli O157 PCR Not detected, Stl Enterotoxigenic E PCR Not detected, Stool EPEC (PCR) Not detected, Stool EAEC (PCR) Not detected, Stl E. histolytica PCR Not detected, Stool Giardia Lamblia PCR Not detected, Stool Salmonella PCR Not detected, Stool Sap ovirus (PCR) Not detected, Stl P. shigelloides PCR Not detected, Stl Shigella/EIEC PCR Not detected, St Y.enterocolitica PCR Not detected, Stool Vibrio (PCR) Not detected, Stl Vibrio cholerae PCR Not detected, Stl Norovirus GI/GII PCR Not detected 07/25/18 15:05: WBC 2.6 L, RBC 2.83 L D, Hgb 8.5 L D, Hct 27.2 L, MCV 96.0 H, MCH 29.9, MCHC 31.1 L, RDW 24.5 H, Plt Count 97 L, MPV 9.3, Neut % (Auto) 78.5, Lymph % (Auto) 14.4, [place] % (Auto) 4.9, Eos % (Auto) 1.0, Baso % (Auto) 1.2, Neut # (Auto) 2.0, Lymph # (Auto) 0.4 L, [place] # (Auto) 0.1, Eos # (Auto) 0.0, Baso # (Auto) 0.0 07/25/18 15:05: PT 12.3 H, INR 1.20 H, APTT 27.4 I & O for Last 24 hours: Intake & Output 07/24/18 07/25/18 07/26/18 07/27/18 11:59 11:59 11:59 11:59 Intake Total 4490 / 4490 3490 / 3490 Output Total 150 / 150 500 / 500 Balance 4340 / 4340 2990 / 2990 Weight 136 lb 7 oz 147 lb 4 oz - *Routine Neck Exam Present: lymphadenopathy - Routine Chest/Breast/Axilla Exam Axillae: Present: lymphadenopathy Internal Medicine - CN: Reslt - Labs CBC & Chem 7: 07/25/18 15:05 07/25/18 05:30 Labs: Short CBC 07/25/18 Range/Units 15:05 WBC 2.6 L (4.8-10.8) K/mm3 Hgb 8.5 L D (14.1-18.0) g/dL Hct 27.2 L (42.0-52.0) % Plt Count 97 L (142-424) K/mm3 Assessment and Plan (1) Tobacco use Current visit: Yes Status: Acute Category: Medical Code(s): Z72.0 - Tobacco use (2) Severe sepsis Current visit: Yes Status: Acute Category: Medical Code(s): A41.9 - Sepsi s, unspecified organism; R65.20 - Severe sepsis without septic shock (3) Septic shock Current visit: Yes Status: Acute Category: Medical Code(s): A41.9 - Sepsis, unspecified organism; R65.21 - Severe sepsis with septic shock (4) Hypothyroidism Current visit: Yes Status: Acute Qualifiers: Hypothyroidism type: acquired Qualified Code(s): E03.9 - Hypothyroidism, unspecified Category: Medical Code(s): E03.9 - Hypothyroidism, unspecified (5) Anemia Current visit: Yes Status: Acute Qualifiers: Anemia type: unspecified type Qualified Code(s): D64.9 - Anemia, unspecif ied Category: Medical Code(s): D64.9 - Anemia, unspecified (6) Leukopenia Current visit: Yes Status: Acute Qualifiers: Leukopenia type: unspecified Qualified Code(s): D72.819 - Decreased white blood cell count, unspecified Category: Medical Code(s): D72.819 - Decreased white blood cell count, unspecified (7) Thrombocytopenia Current visit: Yes Status: Acute Category: Medical Code(s): D69.6 - Thrombocytopenia, unspecified (8) Renal insufficiency Current visit: Yes Status: Acute Category: Medical Code(s): N28.9 - Disorder of kidney and ureter, unspecified (9) Elevated erythrocyte sedimentation rate Current visit: Yes Status: Acute Category: Medical Code(s): R70.0 - Elevated erythrocyte sedimentation rate (10) Elevated C-reactive protein (CRP) Current visit: Yes Status: Acute Category: Medical Code(s): R79.82 - Elevated C-reactive protein (CRP) (11) Schizophrenia Current visit: Yes Status: Acute Qualifiers: Schizophrenia type: unspecified Qualified Code(s): F20.9 - Schizophrenia, unspecified Category: Medical Code(s): F20.9 - Schizophrenia, unspecified (12) Hyperlipidemia Current visit: Yes Status: Acute Qualifiers: Hyperlipidemia type: unspecified Qualified Code(s): E78.5 - Hyperlipidemia, unspecified Category: Medical Code(s): E78.5 - Hyperlipidemia, unspecified (13) Hepatomegaly Current visit: Yes Status: Acute Category: Medical Code(s): R16.0 - Hepatomegaly, not elsewhere classified (14) Splenomegaly Current visit: Yes Status: Acute Category: Medical Code(s): R16.1 - Splenomegaly, not elsewhere classified (15) Elevated alkaline phosphatase level Current visit: Yes Status: Acute Category: Medical Code(s): R74.8 - Abnormal levels of other serum enzymes (16) Pleural effusion Current visit: Yes Status: Acute Category: Medical Code(s): J90 - Pleural effusion, not elsewhere classified (17) Pulmonary mass Current visit: Yes Status: Acute Category: Medical Code(s): R91.8 - Other nonspecific abnormal finding of lung field (18) Aorto-iliac atherosclerosis Current visit: Yes Status: Acute Category: Medical Code(s): I70.0 - Atherosclerosis of aorta; I70.299 - Other atherosclerosis of [place] arteries of extremities, unspecified extremity (19) Osseous metastasis Current visit: Yes Status: Acute Category: Medical Code(s): C79.51 - Secondary malignant neoplasm of bone (20) Adenopathy Current visit: Yes Status: Acute Category: Medical Code(s): R59.1 - Generalized enlarged lymph nodes - Assessment and plan all Dx Assessment and Plan for all problems:: diffuse lad with liver/bone lesions and splenomegaly- axillary bx pending. need bx results to make further treatment recommendations. d/w pt. will see him in the office next week for further discussion with results. thank you for referral. please call with questions.
--- NOTE | 2018-07-27 09:05 | Progress Note ---
Internal Medicine - PN: Subj *Date: 07/27/18 *Time: 09:06 Exam Vital signs and Labs for Last 24 Hours: Temp Pulse Resp BP Pulse Ox 98.0 F 66 18 89/48 L 94 L 07/27/18 08:00 07/27/18 08:00 07/27/18 08:00 07/27/18 08:00 07/27/18 08:00 I & O for Last 24 hours: Intake & Output 07/24/18 07/25/18 07/26/18 07/27/18 11:59 11:59 11:59 11:59 Intake Total 4490 / 4490 3490 / 3490 1869 / 1869 Output Total 150 / 150 500 / 500 1000 / 1000 Balance 4340 / 4340 2990 / 2990 869 / 869 Weight 136 lb 7 oz 147 lb 4 oz 147 lb 3 oz Microbiology Reports for the Last 24 Hours: Microbiology 07/24/18 22:34 Blood Blood Culture - Preliminary NO GROWTH AFTER 48 HOURS 07/24/18 22:34 Blood Blood Culture - Preliminary NO GROWTH AFTER 48 HOURS - Constitutional no acute distress, chronically ill appearing - *Routine HEENT Exam Head: Present: normocephalic Eye: Present: EOMI, PERRL ENT: Present: mucous membranes moist - *Routine Neck Exam Present: supple. Absent: lymphadenopathy - *Routine Respiratory Exam Present: CTA bilaterally - *Routine Cardiovascular Exam Present: RRR - *Routine Abdominal Exam Present: soft, normoactive bowel sounds. Absent: tenderness - *Routine Extremities Exam Absent: cyanosis, clubbing, edema - *Routine Skin Exam Present: warm. Absent: rash - *Routine Neurological Exam Present: alert, oriented X3 - Routine Psychiatric Exam Present: normal affect Assessment and Plan (1) Tobacco use Current visit: Yes Status: Acute Category: Medical Code(s): Z72.0 - Tobacco use (2) Severe sepsis Current visit: Yes Status: Acute Category: Medical Code(s): A41.9 - Sepsis, unspecified organism; R65.20 - Severe sepsis without septic shock (3) Septic shock Current visit: Yes Status: Acute Category: Medical Code(s): A41.9 - Sepsis, unspecified organism; R65.21 - Severe sepsis with septic shock (4) Hypothyroidism Current visit: Yes Status: Acute Qualifiers: Hypothyroidism type: acquired Qualified Code(s): E03.9 - Hypothyroidism, unspecified Category: Medical Code(s): E03.9 - Hypothyroidism, unspecified (5) Anemia Current visit: Yes Status: Acute Qualifiers: Anemia type: unspecified type Qualified Code(s): D64.9 - Anemia, unspecified Category: Medical Code(s): D64.9 - Anemia, unspecified (6) Leukopenia Current visit: Yes Status: Acute Qualifiers: Leukopenia type: unspecified Qualified Code(s): D72.819 - Decreased white blood cell count, unspecified Category: Medical Code(s): D72.819 - Decreased white blood cell count, unspecified (7) Thrombocytopenia Current visit: Yes Status: Acute Category: Medical Code(s): D69.6 - Thrombocytopenia, unspecified (8) Renal insufficiency Current visit: Yes Status: Acute Category: Medical Code(s): N28.9 - Disorder of kidney and ureter, unspecified (9) Elevated erythrocyte sedimentation rate Current visit: Yes Status: Acute Category: Medical Code(s): R70.0 - Elevated erythrocyte sedimentation rate (10) Elevated C-reactive protein (CRP) Current visit: Yes Status: Acute Category: Medical Code(s): R79.82 - Elevated C-reactive protein (CRP) (11) Schizophrenia Current visit: Yes Status: Acute Qualifiers: Schizophrenia type: unspecified Qualified Code(s): F20.9 - Schizophrenia, unspecified Category: Medical Code(s): F20.9 - Schizophrenia, unspecified (12) Hyperlipidemia Current visit: Yes Status: Acute Qualifiers: Hyperlipidemia type: unspecified Qualified Code(s): E78.5 - Hyperlipidemia, unspecified Category: Medical Code(s): E78.5 - Hyperlipidemia, unspecified (13) Hepatomegaly Current visit: Yes Status: Acute Category: Medical Code(s): R16.0 - Hepatomegaly, not elsewhere classified (14) Splenomegaly Current visit: Yes Status: Acute Category: Medical Code(s): R16.1 - Splenomegaly, not elsewhere classified (15) Elevated alkaline phosphatase level Current visit: Yes Status: Acute Category: Medical Code(s): R74.8 - Abnormal levels of other serum enzymes (16) Pleural effusion Current visit: Yes Status: Acute Category: Medical Code(s): J90 - Pleural effusion, not elsewhere classified (17) Pulmonary mass Current visit: Yes Status: Acute Category: Medical Code(s): R91.8 - Other nonspecific abnormal finding of lung field (18) Aorto-iliac atherosclerosis Current visit: Yes Status: Acute Category: Medical Code(s): I70.0 - Atherosclerosis of aorta; I70.299 - Other atherosclerosis of [place] arteries of extremities, unspecified extremity (19) Osseous metastasis Current visit: Yes Status: Acute Category: Medical Code(s): C79.51 - Secondary malignant neoplasm of bone (20) Adenopathy Current visit: Yes Status: Acute Category: Medical Code(s): R59.1 - Generalized enlarged lymph nodes (21) Cachexia Current visit: Yes Status: Acute Category: Medical Code(s): R64 - Cachexia (22) Adult BMI <19 kg/sq m Current visit: Yes Status: Acute Category: Medical Code(s): Z68.1 - Body mass index (BMI) 19.9 or less, adult (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 Black all orders per Wayne Waiting for long-term care placement
[2018-07-28 07:16] LABS: Eosinophils % 1.6 % (0.1-12.0); Hematocrit 24.3 % (42.0-52.0); Lymphocytes # 0.2 K/mm3 (0.7-4.5); Lymphocytes % 16.5 % (10-50); Mean Corpuscular HGB Conc 31.7 g/dL (31.8-35.4); Mean Corpuscular Hemoglobin 29.4 pg (27.0-31.2); Mean Corpuscular Volume 92.9 fl (80-94); Mean Platelet Volume 9.4 fl (7.4-10.4); Monocytes # 0.1 K/mm3 (0.1-1.0); Monocytes % 3.1 % (1.7-9.3); Neutrophils # 1.2 K/mm3 (1.8-7.8); Neutrophils % 77.8 % (37.0-80.0); Platelet Count 75 K/mm3 (142-424); Red Blood Count 2.61 M/mm3 (4.60-6.20); Red Cell Distribution Width 23.4 % (11.5-17.5); White Blood Count 1.5 K/mm3 (4.8-10.8)
[2018-07-28 07:18] LABS: Hemoglobin 7.7 g/dL (14.1-18.0)
[2018-07-28 07:22] LABS: Albumin Level 1.6 gm/dL (3.4-5.0); Albumin/Globulin Ratio 0.5 (1.1-1.8); Anion Gap 17.5 mEq/L (5-15); Bilirubin,Total 0.7 mg/dL (0.2-1.0); Calcium 8.6 mg/dL (8.5-10.1); Globulin 3.2 gm/dl (1.3-3.2); Potassium 3.5 mmoL/L (3.5-5.1); Total Protein,Serum 4.8 gm/dL (6.4-8.2)
--- NOTE | 2018-07-28 08:53 | Progress Note ---
Internal Medicine - PN: Subj *Date: 07/28/18 *Time: 08:50 Interval history: more lethargic this am but denied c/o Exam Vital signs and Labs for Last 24 Hours: Temp Pulse Resp BP Pulse Ox 98.6 F 90 20 95/64 L 96 07/28/18 08:37 07/28/18 08:00 07/28/18 08:00 07/28/18 08:00 07/28/18 08:07 Laboratory Results - last 24 hr 07/25/18 04:15: Crossmatch (AHG) See Detail 07/28/18 06:30: WBC 1.5 L* D, RBC 2.61 L, Hgb 7.7 L*, Hct 24.3 L, MCV 92.9, MCH 29.4, MCHC 31.7 L, RDW 23.4 H, Plt Count 75 L, MPV 9.4, Neut % (Auto) 77.8, Lymph % (Auto) 16.5, [place] % (Auto) 3.1, Eos % (Auto) 1.6, Baso % (Auto) 1.0, Neut # (Auto) 1.2 L, Lymph # (Auto) 0.2 L, [place] # (Auto) 0.1, Eos # (Auto) 0.0, Baso # (Auto) 0.0 07/28/18 06:30: Sodium 138, Potassium 3.5, Chloride 105, Carbon Dioxide 19 L, Anion Gap 17.5 H, BUN 13, Creatinine 0.90, Estimated Creat Clear 74, Estimated GFR 86, Est GFR ( Amer) 104, Glucose 84, Calcium 8.6, Total Bilirubin 0.7, AST 122 H, ALT 60, Alkaline Phosphatase 279 H, Total Protein 4.8 L, Albumin 1.6 L, Globulin 3.2, Albumin/Globulin Ratio 0.5 L I & O for Last 24 hours: Intake & Output 07/25/18 07/26/18 07/27/18 07/28/18 11:59 11:59 11:59 11:59 Intake Total 4490 / 4490 3490 / 3490 1869 / 1869 4335 / 4335 Output Total 150 / 150 500 / 500 1000 / 1000 650 / 650 Balance 4340 / 4340 2990 / 2990 869 / 869 3685 / 3685 Weight 136 lb 7 oz 147 lb 4 oz 147 lb 3 oz 149 lb 2.995 oz - Constitutional no acute distress, thin - *Routine HEENT Exam Head: Present: normocephalic Eye: Present: EOMI, PERRL ENT: Present: mucous membranes dry - *Routine Neck Exam Present: supple - *Routine Respiratory Exam Present: decreased breath sounds - *Routine Cardiovascular Exam Present: murmur - *Routine Abdominal Exam Present: soft - *Routine Extremities Exam Absent: calf tenderness - *Routine Skin Exam Present: intact - *Routine Neurological Exam Present: alert, CN II-XII intact - Routine Psychiatric Exam Present: normal affect Assessment and Plan (1) Tobacco use Current visit: Yes Status: Acute Category: Medical Code(s): Z72.0 - Tobacco use (2) Severe sepsis Current visit: Yes Status: Acute Category: Medical Code(s): A41.9 - Sepsis, unspecified organism; R65.20 - Severe sepsis without septic shock (3) Septic shock Current visit: Yes Status: Acute Category: Medical Code(s): A41.9 - Sepsis, unspecified organism; R65.21 - Severe sepsis with septic shock (4) Hypothyroidism Current visit: Yes Status: Acute Qualifiers: Hypothyroidism type: acquired Qualified Code(s): E03.9 - Hypothyroidism, unspecified Category: Medical Code(s): E03.9 - Hypothyroidism, unspecified (5) Anemia Current visit: Yes Status: Acute Qualifiers: Anemia type: unspecified type Qualified Code(s): D64.9 - Anemia, unspecified Category: Medical Code(s): D64.9 - Anemia, unspecified (6) Leukopenia Current visit: Yes Status: Acute Qualifiers: Leukopenia type: unspecified Qualified Code(s): D72.819 - Decreased white blood cell count, unspecified Category: Medical Code(s): D72.819 - Decreased white blood cell count, unspecified (7) Thrombocytopenia Current visit: Yes Status: Acute Category: Medical Code(s): D69.6 - Thrombocytopenia, unspecified (8) Renal insufficiency Current visit: Yes Status: Acute Category: Medical Code(s): N28.9 - Disorder of kidney and ureter, unspecified (9) Elevated erythrocyte sedimentation rate Current visit: Yes Status: Acute Category: Medical Code(s): R70.0 - Elevated erythrocyte sedimentation rate (10) Elevated C-reactive protein (CRP) Current visit: Yes Status: Acute Category: Medical Code(s): R79.82 - Elevated C-reactive protein (CRP) (11) Schizophrenia Current visit: Yes Status: Acute Qualifiers: Schizophrenia type: unspecified Qualified Code(s): F20.9 - Schizophrenia, unspecified Category: Medical Code(s): F20.9 - Schizophrenia, unspecified (12) Hyperlipidemia Current visit: Yes Status: Acute Qualifiers: Hyperlipidemia type: unspecified Qualified Code(s): E78.5 - Hyperlipidemia, unspecified Category: Medical Code(s): E78.5 - Hyperlipidemia, unspecified (13) Hepatomegaly Current visit: Yes Status: Acute Category: Medical Code(s): R16.0 - Hep atomegaly, not elsewhere classified (14) Splenomegaly Current visit: Yes Status: Acute Category: Medical Code(s): R16.1 - Splenomegaly, not elsewhere classified (15) Elevated alkaline phosphatase level Current visit: Yes Status: Acute Category: Medical Code(s): R74.8 - Abnormal levels of other serum enzymes (16) Pleural effusion Current visit: Yes Status: Acute Category: Medical Code(s): J90 - Pleural effusion, not elsewhere classified (17) Pulmonary mass Current visit: Yes Status: Acute Category: Medical Code(s): R91.8 - Other nonspecific abnormal finding of lung field (18) Aorto-iliac atherosclerosis Current visit: Yes Status: Acute Category: Medical Code(s): I70.0 - Atherosclerosis of aorta; I70.299 - Other atherosclerosis of [place] arteries of extremities, unspecified extremity (19) Osseous metastasis Current visit: Yes Status: Acute Category: Medical Code(s): C79.51 - Secondary malignant neoplasm of bone (20) Adenopathy Current visit: Yes Status: Acute Category: Medical Code(s): R59.1 - Generalized enlarged lymph nodes (21) Cachexia Current visit: Yes Status: Acute Category: Medical Code(s): R64 - Cachexia (22) Adult BMI <19 kg/sq m Current visit: Yes Status: Acute Category: Medical Code(s): Z68.1 - Body mass index (BMI) 19.9 or less, adult (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 Current visit: Yes Status: Acute Category: Medical Code(s): D63.0 - Anemia in neoplastic disease (24) Pleural effusion, malignant Current visit: Yes Status: Acute Category: Medical Code(s): J91.0 - Malignant pleural effusion (25) Neutropenia Current visit: Yes Status: Acute Qualifiers: Neutropenia type: unspecified Qualified Code(s): D70.9 - Neutropenia, unspecified Category: Medical Code(s): D70.9 - Neutropenia, unspecified
[2018-07-29 05:52] LABS: Basophils % 0.8 % (0.1-2.0); Eosinophils % 0.7 % (0.1-12.0); Lymphocytes # 0.3 K/mm3 (0.7-4.5); Lymphocytes % 16.3 % (10-50); Mean Corpuscular HGB Conc 31.2 g/dL (31.8-35.4); Mean Corpuscular Hemoglobin 29.3 pg (27.0-31.2); Mean Platelet Volume 9.8 fl (7.4-10.4); Monocytes # 0.1 K/mm3 (0.1-1.0); Monocytes % 4.4 % (1.7-9.3); Neutrophils # 1.6 K/mm3 (1.8-7.8); Neutrophils % 77.9 % (37.0-80.0); Platelet Count 69 K/mm3 (142-424); Red Blood Count 2.72 M/mm3 (4.60-6.20); Red Cell Distribution Width 23.4 % (11.5-17.5); White Blood Count 2.1 K/mm3 (4.8-10.8)
[2018-07-29 05:59] LABS: Hematocrit 25.6 % (42.0-52.0)
[2018-07-29 06:08] LABS: Albumin Level 1.6 gm/dL (3.4-5.0); Albumin/Globulin Ratio 0.5 (1.1-1.8); Anion Gap 18.7 mEq/L (5-15); Calcium 8.7 mg/dL (8.5-10.1); Globulin 3.4 gm/dl (1.3-3.2); Potassium 3.7 mmoL/L (3.5-5.1)
--- NOTE | 2018-07-29 08:42 | Progress Note ---
Internal Medicine - PN: Subj *Date: 07/29/18 *Time: 08:41 Interval history: doing better Exam Vital signs and Labs for Last 24 Hours: Temp Pulse Resp BP Pulse Ox 98.4 F 74 20 112/65 93 L 07/29/18 07:57 07/29/18 07:57 07/29/18 07:57 07/29/18 07:57 07/29/18 07:57 Laboratory Results - last 24 hr 07/29/18 05:35: WBC 2.1 L D, RBC 2.72 L, Hgb 8.0 L, Hct 25.6 L, MCV 94.0, MCH 29.3, MCHC 31.2 L, RDW 23.4 H, Plt Count 69 L, MPV 9.8, Neut % (Auto) 77.9, [place] % (Auto) 16.3, [place] % (Auto) 4.4, Eos % (Auto) 0.7, Baso % (Auto) 0.8, Neut # (Auto) 1.6 L, Lymph # (Auto) 0.3 L, [place] # (Auto) 0.1, Eos # (Auto) 0.0, Baso # (Auto) 0.0 07/29/18 05:35: Sodium 138, Potassium 3.7, Chloride 104, Carbon Dioxide 19 L, Anion Gap 18.7 H, BUN 13, Creatinine 0.89, Estimated Creat Clear 74, Estimated GFR 87, Est GFR ( Amer) 105, Glucose 90, Calcium 8.7, Total Bilirubin 1.0, AST 110 H, ALT 48, Alkaline Phosphatase 308 H, Total Protein 5.0 L, Albumin 1.6 L, Globulin 3.4 H, Albumin/Globulin Ratio 0.5 L I & O for Last 24 hours: Intake & Output 07/26/18 07/27/18 07/28/18 07/29/18 11:59 11:59 11:59 11:59 Intake Total 3490 / 3490 1869 / 1869 4335 / 4335 3423 / 3423 Output Total 500 / 500 1000 / 1000 900 / 900 1140 / 1140 Balance 2990 / 2990 869 / 869 3435 / 3435 2283 / 2283 Weight 147 lb 4 oz 147 lb 3 oz 149 lb 2.995 oz 149 lb 8 oz - Constitutional no acute distress, thin - *Routine HEENT Exam Head: Present: normocephalic Eye: Present: EOMI, PERRL ENT: Present: mucous membranes dry - *Routine Neck Exam Absent: JVD - *Routine Respiratory Exam Present: decreased breath sounds - *Routine Cardiovascular Exam Present: RRR, murmur. Absent: rubs - *Routine Abdominal Exam Present: soft - *Routine Extremities Exam Absent: calf tenderness - *Routine Skin Exam Present: intact - *Routine Neurological Exam Present: alert, oriented X3, CN II-XII intact - Routine Psychiatric Exam Present: normal affect Assessment and Plan (1) Tobacco use Current visit: Yes Status: Acute Category: Medical Code(s): Z72.0 - Tobacco use (2) Severe sepsis Current visit: Yes Status: Acute Category: Medical Code(s): A41.9 - Sepsis, unspecified organism; R65.20 - Severe sepsis without septic shock (3) Septic shock Current visit: Yes Status: Acute Category: Medical Code(s): A41.9 - Sepsis, unspecified organism; R65.21 - Severe sepsis with septic shock (4) Hypothyroidism Current visit: Yes Status: Acute Qualifiers: Hypothyroidism type: acquired Qualified Code(s): E03.9 - Hypothyroidism, unspecified Category: Medical Code(s): E03.9 - Hypothyroidism, unspecified (5) Anemia Current visit: Yes Status: Acute Qualifiers: Anemia type: unspecified type Qualified Code(s): D64.9 - Anemia, unspecified Category: Medical Code(s): D64.9 - Anemia, unspecified (6) Leukopenia Current visit: Yes Status: Acute Qualifiers: Leukopenia type: unspecified Qualified Code(s): D72.819 - Decreased white blood cell count, unspecified Category: Medical Code(s): D72.819 - Decreased white blood cell count, unspecified (7) Thrombocytopenia Current visit: Yes Status: Acute Category: Medical Code(s): D69.6 - Thrombocytopenia, unspecified (8) Renal insufficiency Current visit: Yes Status: Acute Category: Medical Code(s): N28.9 - Disorder of kidney and ureter, unspecified (9) Elevated erythrocyte sedimentation rate Current visit: Yes Status: Acute Category: Medical Code(s): R70.0 - Elevated erythrocyte sedimentation rate (10) Elevated C-reactive protein (CRP) Current visit: Yes Status: Acute Category: Medical Code(s): R79.82 - Elevated C-reactive protein (CRP) (11) Schizophrenia Current visit: Yes Status: Acute Qualifiers: Schizophrenia type: unspecified Qualified Code(s): F20.9 - Schizophrenia, unspecified Category: Medical Code(s): F20.9 - Schizophrenia, unspecified (12) Hyperlipidemia Current visit: Yes Status: Acute Qualifiers: Hyperlipidemia type: unspecified Qualified Code(s): E78.5 - Hyperlipidemia, unspecified Category: Medical Code(s): E78.5 - Hyperlipidemia, unspecified (13) Hepatomegaly Current visit: Yes Status: Acute Category: Medical Code(s): R16.0 - Hepatomegaly, not elsewhere classified (14) Splenomegaly Current visit: Yes Status: Acute Category: Medical Code(s): R16.1 - Splenomegaly, not elsewhere classified (15) Elevated alkaline phosphatase level Current visit: Yes Status: Acute Category: Medical Code(s): R74.8 - Abnormal levels of other serum enzymes (16) Pleural effusion Current visit: Yes Status: Acute Category: Medical Code(s): J90 - Pleural effusion, not elsewhere classified (17) Pulmonary mass Current visit: Yes Status: Acute Category: Medical Code(s): R91.8 - Other nonspecific abnormal finding of lung field (18) Aorto-iliac atherosclerosis Current visit: Yes Status: Acute Category: Medical Code(s): I70.0 - Atherosclerosis of aorta; I70.299 - Other atherosclerosis of [place] arteries of extremities, unspecified extremity (19) Osseous metastasis Current visit: Yes Status: Acute Category: Medical Code(s): C79.51 - Secondary malignant neoplasm of bone (20) Adenopathy Current visit: Yes Status: Acute Category: Medical Code(s): R59.1 - Generalized enlarged lymph nodes (21) Cachexia Current visit: Yes Status: Acute Category: Medical Code(s): R64 - Cachexia (22) Adult BMI <19 kg/sq m Current visit: Yes Status: Acute Category: Medical Code(s): Z68.1 - Body mass index (BMI) 19.9 or less, adult (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 Current visit: Yes Status: Acute Category: Medical Code(s): D63.0 - Anemia in neoplastic disease (24) Pleural effusion, malignant Current visit: Yes Status: Acute Category: Medical Code(s): J91.0 - Malignant pleural effusion (25) Neutropenia Current visit: Yes Status: Acute Qualifiers: Neutropenia type: unspecified Qualified Code(s): D70.9 - Neutropenia, unspecified Category: Medical Code(s): D70.9 - Neutropenia, unspecified
[2018-07-30 07:05] LABS: Basophils % 1.4 % (0.1-2.0); Hematocrit 25.1 % (42.0-52.0); Lymphocytes # 0.3 K/mm3 (0.7-4.5); Lymphocytes % 17.5 % (10-50); Mean Corpuscular HGB Conc 30.8 g/dL (31.8-35.4); Mean Corpuscular Hemoglobin 29.8 pg (27.0-31.2); Mean Corpuscular Volume 96.6 fl (80-94); Mean Platelet Volume 9.3 fl (7.4-10.4); Monocytes # 0.1 K/mm3 (0.1-1.0); Monocytes % 2.9 % (1.7-9.3); Neutrophils # 1.5 K/mm3 (1.8-7.8); Neutrophils % 77.3 % (37.0-80.0); Platelet Count 66 K/mm3 (142-424); Red Cell Distribution Width 23.1 % (11.5-17.5); White Blood Count 1.9 K/mm3 (4.8-10.8)
[2018-07-30 07:17] LABS: Albumin Level 1.6 gm/dL (3.4-5.0); Albumin/Globulin Ratio 0.5 (1.1-1.8); Anion Gap 15.8 mEq/L (5-15); Bilirubin,Total 0.7 mg/dL (0.2-1.0); Calcium 9.1 mg/dL (8.5-10.1); Globulin 3.4 gm/dl (1.3-3.2); Potassium 3.8 mmoL/L (3.5-5.1)
[2018-07-30 07:36] LABS: Hemoglobin 7.7 g/dL (14.1-18.0)
--- NOTE | 2018-07-30 13:00 | Sepsis Event Note ---
Tissue Perfusion Evaluation Sepsis Re-Evaluation Performed: Yes Date Performed: 07/30/18 Time Performed: 12:59 Sepsis Follow-Up: Yes: Respiratory exam, Cardiovascular exam, Vital Signs Most Recent Vital Signs: Temperature 101.4 F H 07/30/18 08:38 Temperature Source Rectal 07/30/18 08:38 Pulse Rate 104 H 07/30/18 07:58 Respiratory Rate 20 07/30/18 07:58 TAR Vitals Timing 1 Hour Post Infusion 07/25/18 14:50 Blood Pressure 109/70 L 07/30/18 07:58 Blood Pressure Mean 83 07/30/18 07:58 Blood Pressure Source Automatic Cuff 07/30/18 07:58 Blood Pressure Position Supine 07/30/18 07:58 02 Sat by Pulse Oximetry 96 07/30/18 07:58 Oxygen Delivery Method 07/30/18 11:00 Oxygen Flow Rate (LPM) 0 07/29/18 16:00
[2018-07-30 16:29] LABS: Microscopic, Urine URINE MICROSCOPIC (MICROSCOPIC)
[2018-07-30 17:01] LABS: Appearance,Urine CLEAR (Clear); Bilirubin,Urine Negative (Negative); Blood, Urine 1+ (Negative); Color,Urine YELLOW (Yellow); Glucose,Urine (UA) Negative (Negative); Ketones,Urine Negative (Negative); Leukocyte Esterase,Urine Negative (Negative); PH,Urine 5.5 (5.0-8.5); Protein,Urine Negative (Negative); Specific Gravity, Urine 1.025 (1.005-1.030)
[2018-07-30 17:23] LABS: Bacteria,Urine 1+ /lpf
--- NOTE | 2018-07-30 17:25 | Progress Note ---
Internal Medicine - PN: Subj *Date: 07/30/18 *Time: 08:45 Interval history: pt reports feeling ok but has dev fever - see chart - no cough Exam Vital signs and Labs for Last 24 Hours: Temp Pulse Resp BP Pulse Ox 98.3 F 105 H 22 124/79 96 07/30/18 15:15 07/30/18 15:15 07/30/18 15:15 07/30/18 15:15 07/30/18 15:15 Laboratory Results - last 24 hr 07/30/18 06:26: WBC 1.9 L*, RBC 2.60 L, Hgb 7.7 L*, Hct 25.1 L, MCV 96.6 H, MCH 29.8, MCHC 30.8 L, RDW 23.1 H, Plt Count 66 L, MPV 9.3, Neut % (Auto) 77.3, Lymph % (Auto) 17.5, [place] % (Auto) 2.9, Eos % (Auto) 1.0, Baso % (Auto) 1.4, Neut # (Auto) 1.5 L, Lymph # (Auto) 0.3 L, [place] # (Auto) 0.1, Eos # (Auto) 0.0, Baso # (Auto) 0.0 07/30/18 06:26: Sodium 137, Potassium 3.8, Chloride 104, Carbon Dioxide 21, Anion Gap 15.8 H, BUN 14, Creatinine 0.85, Estimated Creat Clear 81, Estimated GFR 92, Est GFR ( Amer) 111, Glucose 84, Calcium 9.1, Total Bilirubin 0.7, AST 104 H, ALT 41, Alkaline Phosphatase 326 H, Total Protein 5.0 L, Albumin 1.6 L, Globulin 3.4 H, Albumin/Globulin Ratio 0.5 L 07/30/18 09:17: Lactate 5.0 H 07/30/18 13:40: Lactate 5.1 H 07/30/18 15:10: Lactate 5.6 H 07/30/18 16:15: Urine Color Yellow, Urine Appearance Clear, Urine pH 5.5, Ur Specific [place] 1.025, Urine Protein Negative, Urine Glucose (UA) Negative, Urine Ketones Negative, Urine Blood 1+, Urine Nitrate Negative, Urine Bilirubin Negative, Urine Urobilinogen 2.0, Ur Leukocyte Esterase Negative I & O for Last 24 hours: Intake & Output 07/28/18 07/29/18 07/30/18 07/31/18 11:59 11:59 11:59 11:59 Intake Total 4335 / 4335 3423 / 3423 3329 / 3329 240 / 240 Output Total 900 / 900 1140 / 1140 1320 / 1320 300 / 300 Balance 3435 / 3435 2283 / 2283 2008 -60 / -60 Weight 149 lb 2.995 oz 149 lb 8 oz 162 lb 1 oz Microbiology Reports for the Last 24 Hours: Microbiology 07/24/18 22:34 Blood Blood Culture - Final NO GROWTH AFTER 5 DAYS 07/24/18 22:34 Blood Blood Culture - Final NO GROWTH AFTER 5 DAYS - Constitutional cachectic - *Routine HEENT Exam Head: Present: normocephalic Eye: Present: EOMI, PERRL. Absent: conjunctival icterus ENT: Present: mucous membranes dry - *Routine Neck Exam Present: supple. Absent: meningismus - *Routine Respiratory Exam Present: decreased breath sounds - *Routine Cardiovascular Exam Present: RRR, murmur. Absent: rubs - *Routine Abdominal Exam Present: soft, organomegaly. Absent: distended - *Routine Extremities Exam Absent: calf tenderness - Routine Back/Spine/Pelvis Exam Back/Spine: Absent: CVA tenderness - *Routine Skin Exam Present: intact - *Routine Neurological Exam Present: alert, CN II-XII intact. Absent: motor deficit - Routine Psychiatric Exam Present: normal affect Assessment and Plan (1) Tobacco use Current visit: Yes Status: Acute Category: Medical Code(s): Z72.0 - Tobacco use (2) Severe sepsis Current visit: Yes Status: Acute Category: Medical Code(s): A41.9 - Sepsis, unspecified organism; R65.20 - Severe sepsis without septic shock (3) Septic shock Current visit: Yes Status: Acute Category: Medical Code(s): A41.9 - Sepsis, unspecified organism; R65.21 - Severe sepsis with septic shock (4) Hypothyroidism Current visit: Yes Status: Acute Qualifiers: Hypothyroidism type: acquired Qualified Code(s): E03.9 - Hypothyroidism, unspecified Category: Medical Code(s): E03.9 - Hypothyroidism, unspecified (5) Anemia Current visit: Yes Status: Acute Qualifiers: Anemia type: unspecified type Qualified Code(s): D64.9 - Anemia, unspecified Category: Medical Code(s): D64.9 - Anemia, unspecified (6) Leukopenia Current visit: Yes Status: Acute Qualifiers: Leukopenia type: unspecified Qualified Code(s): D72.819 - Decreased white blood cell count, unspecified Category: Medical Code(s): D72.819 - Decreased white blood cell count, unspecified (7) Thrombocytopenia Current visit: Yes Status: Acute Category: Medical Code(s): D69.6 - Thrombocytopenia, unspecified (8) Renal insufficiency Current visit: Yes Status: Acute Category: Medical Code(s): N28.9 - Disorder of kidney and ureter, unspecified (9) Elevated erythrocyte sedimentation rate Current visit: Yes Status: Acute Category: Medical Code(s): R70.0 - Elevated erythrocyte sedimentation rate (10) Elevated C-reactive protein (CRP) Current visit: Yes Status: Acute Category: Medical Code(s): R79.82 - Elevated C-reactive protein (CRP) (11) Schizophrenia Current visit: Yes Status: Acute Qualifiers: Schizophrenia type: unspecified Qualified Code(s): F20.9 - Schizophrenia, unspecified Category: Medical Code(s): F20.9 - Schizophrenia, unspecified (12) Hyperlipidemia Current visit: Yes Status: Acute Qualifiers: Hyperlipidemia type: unspecified Qualified Code(s): E78.5 - Hyperlipidemia, unspecified Category: Medical Code(s): E78.5 - Hyperlipidemia, unspecified (13) Hepatomegaly Current visit: Yes Status: Acute Category: Medical Code(s): R16.0 - Hepatomegaly, not elsewhere classified (14) Splenomegaly Current visit: Yes Status: Acute Category: Medical Code(s): R16.1 - Splenomegaly, not elsewhere classified (15) Elevated alkaline phosphatase level Current visit: Yes Status: Acute Category: Medical Code(s): R74.8 - Abnormal levels of other serum enzymes (16) Pleural effusion Current visit: Yes Status: Acute Category: Medical Code(s): J90 - Pleural effusion, not elsewhere classified (17) Pulmonary mass Current visit: Yes Status: Acute Category: Medical Code(s): R91.8 - Other nonspecific abnormal finding of lung field (18) Aorto-iliac atherosclerosis Current visit: Yes Status: Acute Category: Medical Code(s): I70.0 - Atherosclerosis of aorta; I70.299 - Other atherosclerosis of [place] arteries of extremities, unspecified extremity (19) Osseous metastasis Current visit: Yes Status: Acute Category: Medical Code(s): C79.51 - Secondary malignant neoplasm of bone (20) Adenopathy Current visit: Yes Status: Acute Category: Medical Code(s): R59.1 - Generalized enlarged lymph nodes (21) Cachexia Current visit: Yes Status: Acute Category: Medical Code(s): R64 - Cachexia (22) Adult BMI <19 kg/sq m Current visit: Yes Status: Acute Category: Medical Code(s): Z68.1 - Body mass index (BMI) 19.9 or less, adult (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 Current visit: Yes Status: Acute Category: Medical Code(s): D63.0 - Anemia in neoplastic disease (24) Pleural effusion, malignant Current visit: Yes Status: Acute Category: Medical Code(s): J91.0 - Malignant pleural effusion (25) Neutropenia Current visit: Yes Status: Acute Qualifiers: Neutropenia type: unspecified Qualified Code(s): D70.9 - Neutropenia, unspecified Category: Medical Code(s): D70.9 - Neutropenia, unspecified (26) Febrile illness, acute Current visit: Yes Status: Acute Category: Medical Code(s): R50.9 - Fever, unspecified (27) Severe sepsis Current visit: Yes Status: Acute Category: Medical Code(s): A41.9 - Sepsis, unspecified organism; R65.20 - Severe sepsis without septic shock (28) Septic shock Current visit: Yes Status: Acute Category: Medical Code(s): A41.9 - Sepsis, unspecified organism; R65.21 - Severe sepsis with septic shock The patient's infection will respond to the chosen ABx?: Yes Is the patient receiving the right drug, dose, and route?: Yes Could a more targeted ABx be ordered?: No 7
[2018-07-31 06:25] LABS: Basophils % 0.8 % (0.1-2.0); Eosinophils % 0.6 % (0.1-12.0); Lymphocytes # 0.3 K/mm3 (0.7-4.5); Lymphocytes % 15.9 % (10-50); Mean Corpuscular HGB Conc 30.9 g/dL (31.8-35.4); Mean Corpuscular Hemoglobin 28.9 pg (27.0-31.2); Mean Corpuscular Volume 93.5 fl (80-94); Mean Platelet Volume 9.1 fl (7.4-10.4); Monocytes # 0.1 K/mm3 (0.1-1.0); Monocytes % 4.5 % (1.7-9.3); Neutrophils # 1.6 K/mm3 (1.8-7.8); Neutrophils % 78.2 % (37.0-80.0); Platelet Count 70 K/mm3 (142-424); Red Blood Count 2.46 M/mm3 (4.60-6.20); Red Cell Distribution Width 23.1 % (11.5-17.5); White Blood Count 2.1 K/mm3 (4.8-10.8)
[2018-07-31 06:31] LABS: Albumin Level 1.5 gm/dL (3.4-5.0); Albumin/Globulin Ratio 0.5 (1.1-1.8); Anion Gap 15.9 mEq/L (5-15); Bilirubin,Total 0.9 mg/dL (0.2-1.0); Calcium 8.5 mg/dL (8.5-10.1); Globulin 3.3 gm/dl (1.3-3.2); Potassium 3.9 mmoL/L (3.5-5.1); Total Protein,Serum 4.8 gm/dL (6.4-8.2)
[2018-07-31 06:33] LABS: Hemoglobin 7.1 g/dL (14.1-18.0)
--- NOTE | 2018-07-31 08:57 | Discharge Summary ---
General - General Admission date:: 07/25/18 Discharge date: 07/31/18 HPI HPI: this wm was sent from [facility] with weakness which pt stated started today -he denied fever/cough/chest pain and he denied to me diarrhea or vomiting - does have some wt loss and no diabetes reported - he was found in the ed to have sig anemia and prob metastatic disease - pt admitted for eval and treatment Hospital Course Hospital Course: ct abd/pelvis:Lower thorax: Please see chest CT report There are multiple varying-sized hypodense liver lesions largest in the right hepatic lobe at 3 cm consistent with metastatic disease. There is mild gallbladder wall thickening with pericholecystic fluid the liver is enlarged injury 25 cm cephalad to caudad. Spleen is enlarged at 16 cm with heterogeneous enhancement. The adrenal glands and pancreas have an unremarkable appearance. Punctate nonobstructing calculi are present in the right kidney. The left kidney has an unremarkable appearance. There is extensive periportal, mesenteric, and retroperitoneal adenopathy. Pelvic adenopathy and inguinal adenopathy is also noted. No evidence of appendicitis, diverticulitis, intestinal obstruction, or free air. There is mild thickening of the urinary bladder wall. Small amount of free fluid is present in the abdomen and pelvis. There is diffuse mottled appearance of the osseous structures consistent with metastatic disease. A lytic focus is present in the S1 vertebral body on the left measuring 2.7 cm. There is diffuse aortoiliac calcification consistent with atherosclerotic changes IMPRESSION: 1. Findings as described above consistent with extensive metastatic disease involving the liver, lymphatics, and bones. There is splenomegaly with heterogeneous enhancement which may also be due to metastatic involvement. A lytic lesion involves S1 vertebral body on the left. 2. Small amount of free fluid in the abdomen ct chest:FINDINGS: There is diffuse cervical, supraclavicular, bilateral axillary, mediastinal, and hilar adenopathy. A constance mass in the left axillary region measures up to 8.5 x 3.6 cm with nodes in the right axilla measuring up to 4.8 cm. Right hilar adenopathy constance conglomerate measures up to 5.4 x 3 cm. Right paratracheal constance conglomerate 3.8 x 2.2 cm. Subcarinal constance conglomerate 4.3 x 2.3 cm. Normal heart size. No evidence of aortic aneurysm or dissection. No central pulmonary embolus apparent. There are small bilateral pleural effusions with compressive atelectatic changes. No lobar consolidation or collapse. There is some mild interlobular septal thickening. There is a right upper lobe nodule measuring up to 8 mm and a left upper lobe nodule measuring up to 8 mm. There is diffuse mottled appearance of the bony structures suspicious for extensive skeletal metastasis. IMPRESSION: 1. Extensive adenopathy in the cervical region and chest as described above which may represent extensive metastasis or lymphoma/lymphoproliferative disease 2. Diffuse mottled appearance of the skeleton consistent with metastasis 3. Bilateral pleural effusions with interlobular septal thickening suggestive of pulmonary edema 4. 8 mm right upper lobe and left upper lobe nodules which could be neoplastic 5. Pericardial effusion oncology consult- see note waiting bx results Will discharge to [facility] waiting biopsy results and continue IV antibiotics for 10 days. Patient will need to follow-up with Dr. Shahid next week. Repeat CBC on Monday. Monitor vital signs every 4hours. Objective Vital signs: Temp Pulse Resp BP Pulse Ox 98.7 F 103 H 19 119/64 94 L 07/31/18 07:19 07/31/18 07:19 07/31/18 07:19 07/31/18 07:19 07/31/18 07:19 thin, chronically ill appearing - *Routine HEENT Exam Head: Present: normocephalic Eye: Present: PERRL ENT: Present: mucous membranes moist - *Routine Respiratory Exam Present: CTA bilaterally - *Routine Cardiovascular Exam Present: RRR - *Routine Abdominal Exam Present: soft, normoactive bowel sounds. Absent: tenderness - *Routine Extremities Exam Present: full ROM, pulses intact - *Routine Skin Exam Present: intact - *Routine Neurological Exam Present: alert, oriented X3 - Routine Psychiatric Exam Present: normal affect Results Labs on day of discharge: Labs from last 24 hours 07/31/18 07/31/18 07/30/18 05:55 05:55 16:15 WBC 2.1 L RBC 2.46 L Hgb 7.1 L* Hct 23.0 L* MCV 93.5 MCH 28.9 MCHC 30.9 L RDW 23.1 H Plt Count 70 L MPV 9.1 Neut % (Auto) 78.2 Lymph % (Auto) 15.9 [place] % (Auto) 4.5 Eos % (Auto) 0.6 Baso % (Auto) 0.8 Neut # (Auto) 1.6 L Lymph # (Auto) 0.3 L [place] # (Auto) 0.1 Eos # (Auto) 0.0 Baso # (Auto) 0.0 Sodium 139 Potassium 3.9 Chloride 105 Carbon Dioxide 22 Anion Gap 15.9 H BUN 13 Creatinine 0.80 Estimated Creat Clear 184 Estimated GFR 98 Est GFR ( Amer) 119 Glucose 89 Lactate Calcium 8.5 Total Bilirubin 0.9 AST 114 H ALT 37 Alkaline Phosphatase 338 H Total Protein 4.8 L Albumin 1.5 L Globulin 3.3 H Albumin/Globulin Ratio 0.5 L Urine Color Yellow Urine Appearance Clear Urine pH 5.5 Ur Specific [place] 1.025 Urine Protein Negative Urine Glucose (UA) Negative Urine Ketones Negative Urine Blood 1+ Urine Nitrate Negative Urine Bilirubin Negative Urine Urobilinogen 2.0 Ur Leukocyte Esterase Negative Urine RBC 5-10 Urine WBC 3-5 Ur Squamous Epith Cells 3-5 Urine Bacteria 1+ 07/30/18 07/30/18 07/30/18 15:10 13:40 09:17 WBC RBC Hgb Hct MCV MCH MCHC RDW Plt Count MPV Neut % (Auto) Lymph % (Auto) [place] % (Auto) Eos % (Auto) Baso % (Auto) Neut # (Auto) Lymph # (Auto) [place] # (Auto) Eos # (Auto) Baso # (Auto) Sodium Potassium Chloride Carbon Dioxide Anion Gap BUN Creatinine Estimated Creat Clear Estimated GFR Est GFR ( Amer) Glucose Lactate 5.6 H 5.1 H 5.0 H Calcium Total Bilirubin AST ALT Alkaline Phosphatase Total Protein Albumin Globulin Albumin/Globulin Ratio Urine Color Urine Appearance Urine pH Ur Specific [place] Urine Protein Urine Glucose (UA) Urine Ketones Urine Blood Urine Nitrate Urine Bilirubin Urine Urobilinogen Ur Leukocyte Esterase Urine RBC Urine WBC Ur Squamous Epith Cells Urine Bacteria - Additional Comments Rounded with Dr. Black all orders per Wayne DS: Diagnosis - Discharge Diagnosis (1) Tobacco use Status: Acute (2) Severe sepsis Status: Acute (3) Septic shock Status: Acute (4) Hypothyroidism Status: Acute (5) Anemia Status: Acute (6) Leukopenia Status: Acute (7) Thrombocytopenia Status: Acute (8) Renal insufficiency Status: Acute (9) Elevated erythrocyte sedimentation rate Status: Acute (10) Elevated C-reactive protein (CRP) Status: Acute (11) Schizophrenia Status: Acute (12) Hyperlipidemia Status: Acute (13) Hepatomegaly Status: Acute (14) Splenomegaly Status: Acute (15) Elevated alkaline phosphatase level Status: Acute (16) Pleural effusion Status: Acute (17) Pulmonary mass Status: Acute (18) Aorto-iliac atherosclerosis Status: Acute (19) Osseous metastasis Status: Acute (20) Adenopathy Status: Acute (21) Cachexia Status: Acute (22) Adult BMI <19 kg/sq m Status: Acute (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 Status: Acute (24) Pleural effusion, malignant Status: Acute (25) Neutropenia Status: Acute (26) Febrile illness, acute Status: Acute (27) Severe sepsis Status: Acute (28) Septic shock Status: Acute (29) Pancytopenia Status: Acute (30) Pancytopenia with fever Status: Acute Discharge Plan - Patient Discharge Instructions ACTIVITY: Continue current activity DIET: continue same diet Patient Instructions: Anemia, DI for Schizophrenia, DI for Sepsis -- Adult - Follow up Plan Follow up with: Shayne Black MD [Primary Care Provider] - Catherine Shahid MD [Staff Physician] - 1 week Disposition: Home, Self-Shelter Medications: Home Medications Medication Instructions Recorded Confirmed Type Atorvastatin Calcium [Atorvastatin 10 mg PO DAILY 07/24/18 07/25/18 History 10mg Tab] Levothyroxine Sodium 50 mcg PO DAILY 07/24/18 07/25/18 History [Levothyroxine 50mcg (0.05mg) Tab] Omeprazole [Omeprazole 20mg Tab] 20 mg PO DAILY 07/24/18 07/25/18 History risperiDONE [Risperidone] 0.5 mg PO BID 07/24/18 07/25/18 History Acetaminophen [Acetaminophen 325mg 650 mg PO Q6HP PRN 07/25/18 07/25/18 History tab] Albuterol Sulfate [Proair Hfa 2 puffs IH Q6HP PRN 07/25/18 07/25/18 History 90mcg/puff Inh] Meropenem [Meropenem 1GM Vial] 1 gm IV Q8H 10 Days #30 vial 07/31/18 Rx Prescriptions/Medication Reconciliation: New Meropenem [Meropenem 1GM Vial] 1 gm IV Q8H 10 Days #30 vial Continue Levothyroxine Sodium [Levothyroxine 50mcg (0.05mg) Tab] 50 mcg PO DAILY risperiDONE [Risperidone] 0.5 mg PO BID Atorvastatin Calcium [Atorvastatin 10mg Tab] 10 mg PO DAILY Albuterol Sulfate [Proair Hfa 90mcg/puff Inh] 2 puffs IH Q6HP PRN PRN Reason: Shortness Of Breath Or Wheezing Acetaminophen [Acetaminophen 325mg tab] 650 mg PO Q6HP PRN PRN Reason: As Needed For Fever Or Pain Omeprazole [Omeprazole 20mg Tab] 20 mg PO DAILY
== END 2018-07-31 11:08 | DRG 840 ==
LOC: ER 22:09 → 2ND 07-25 04:10
PROVIDERS: ADMIT Emergency Medicine; ATTEND Emergency Medicine
CPT/HCPCS: 36415; 71010; 71045; 71260; 74177; 76942; 80048; 80053; 81001; 82150; 82272; 83605; 83690; 83735; 84436; 84443; 84484; 85025; 85610; 85651; 85730; 86140; 86850; 87040; 87275; 87276; 87506; 93005; 96365; 96366; 97116; 97163; 97165; 97530; 99285; G0328; J2185; P9016; Q9967

== ENCOUNTER → 2018-08-04 09:13 | Outpatient (CLI) | payer MEDICARE, MEDICAID, SELFPAY ==
[2018-08-04] VITALS (13 sets, daily range): BP systolic 104–125; BP diastolic 64–79; PULSE 100–108; RESP 16–20; TEMP 36.6–37.7; O2SAT 92–98; BMI 19.2
--- NOTE | 2018-08-04 10:11 | PC.NURSE ---
NOTIFIED TO VERIFY IF HE ONLY WANTED PT TO HAVE 1 UNIT OF PRBC'S TRANSFUSED FOR A HEMOGLOBIN OF 6.8. HE STATED THAT IT WOULD BE OKAY FOR PT TO BE TRANSFUSED 2 UNITS OF PRBC'S.
[2018-08-04 10:37] LABS: Hematocrit 24.2 % (42.0-52.0); Hemoglobin 7.6 g/dL (14.1-18.0)
--- NOTE | 2018-08-04 10:55 | PC.NURSE ---
NOTIFIED PHYSICIAN TO LET HIM KNOW THAT PT'S HEMOGLOBIN FOR TODAY IS 7.6. PHYSICIAN STATED TO ONLY TRANSFUSE 1 UNIT OF PRBC'S AND DO A 1 HOUR POST H&H.
[2018-08-04 15:35] LABS: Hematocrit 24.7 % (42.0-52.0); Hemoglobin 8.1 g/dL (14.1-18.0)
--- NOTE | 2018-08-04 16:06 | PC.NURSE ---
PT TOLERATED TRANSFUSION WELL. PHYSICIAN WAS NOTIFIED ABOUT 1 HOUR POST H&H AND HE STATED PT WAS OKAY TO GO BACK TO [facility]. NOTIFIED [facility] AND LET THEM KNOW THAT PT NOW HAD A 20G IV IN THE LEFT WRIST. PT ARRIVED TO [facility] WITH A 24G IN THE RIGHT WRIST. [facility] ASKED IF I COULD LEAVE THE 20G IV IN SO HE CAN CONTINUE HIS IV ABX AND TO DISCONTINUE THE 24G IN THE RIGHT WRIST.
== END ==
PROVIDERS: PCP Family Medicine; Visit Provider Family Medicine
DX: D64.9 Anemia, unspecified (principal)
CPT/HCPCS: 36415; 36430; 85014; 85018; 86850; P9016

== ENCOUNTER 2018-08-14 00:06 | Inpatient (IN) ==
[2018-08-14 00:28] LABS: Eosinophils % 0.8 % (0.1-12.0); Hematocrit 27.5 % (42.0-52.0); Hemoglobin 8.7 g/dL (14.1-18.0); Lymphocytes # 0.4 K/mm3 (0.7-4.5); Lymphocytes % 11.4 % (10-50); Mean Corpuscular HGB Conc 31.8 g/dL (31.8-35.4); Mean Corpuscular Volume 91.3 fl (80-94); Mean Platelet Volume 10.4 fl (7.4-10.4); Monocytes # 0.1 K/mm3 (0.1-1.0); Monocytes % 3.1 % (1.7-9.3); Neutrophils # 2.9 K/mm3 (1.8-7.8); Neutrophils % 83.7 % (37.0-80.0); Platelet Count 79 K/mm3 (142-424); Red Blood Count 3.01 M/mm3 (4.60-6.20); Red Cell Distribution Width 21.8 % (11.5-17.5); White Blood Count 3.5 K/mm3 (4.8-10.8)
--- NOTE | 2018-08-14 00:31 | Emergency Department Note ---
ED Disposition Clinical Impression: HCAP (healthcare-associated pneumonia), Severe sepsis, Septic shock, Pancytopenia, T-cell lymphoma Hypothyroidism Qualifiers: Hypothyroidism type: acquired Qualified Code(s): E03.9 - Hypothyroidism, unspecified Schizophrenia Qualifiers: Schizophrenia type: unspecified Qualified Code(s): F20.9 - Schizophrenia, unspecified UTI (urinary tract infection) Qualifiers: Urinary tract infection type: site unspecified Hematuria presence: with hematuria Qualified Code(s): N39.0 - Urinary tract infection, site not specified; R31.9 - Hematuria, unspecified Disposition: Admitted As Inpatient Condition on Discharge: Critical Referrals: Shayne Black MD [Primary Care Provider] - - Critical Care Critical Care Time: No Attestation: On 08/14/18, the high probability of a clinically significant, sudden or life threatening deterioration of the following system(s) required my full and direct attention, intervention and personal management. The time I documented below is in addition to time spent performing reported procedures but includes the following listed in this critical care notation. Medical Decision Making - Medical Records Medical records reviewed: Yes: I reviewed the patient's medical records. - Smith Inquiry Pt receiving controlled substance: No Vital Signs: 08/14/18 00:14 08/14/18 00:49 08/14/18 01:01 Temperature 103 F H Temperature Source Rectal Pulse Rate Pulse Rate [Right Brachial] 149 H 123 H 116 H Respiratory Rate 15 Blood Pressure [Right Arm] 106/73 L 81/51 L 82/54 L Blood Pressure Mean [Right Arm] 84 61 63 Blood Pressure Source [Right Arm] Automatic Cuff Automatic Cuff Automatic Cuff Blood Pressure Position [Right Arm] Sitting Sitting 02 Sat by Pulse Oximetry 94 L 96 97 Oxygen Delivery Method Nasal Cannula Nasal Cannula Nasal Cannula Aerosol Mask Oxygen Flow Rate (LPM) 2 2.5 3 08/14/18 01:09 08/14/18 01:10 08/14/18 01:20 Temperature Temperature Source Pulse Rate 112 H Pulse Rate [Right Brachial] 114 H Respiratory Rate Blood Pressure [Right Arm] 87/55 L Blood Pressure Mean [Right Arm] 65 Blood Pressure Source [Right Arm] Automatic Cuff Blood Pressure Position [Right Arm] Sitting 02 Sat by Pulse Oximetry 93 L 97 Oxygen Delivery Method Nasal Cannula Nasal Cannula Oxygen Flow Rate (LPM) 2.5 2.5 - Lab Data Lab results reviewed: Yes: I reviewed the patient's lab results. Lab Results 08/14/18 00:12: Specimen Source Right radial, O2 % 30%, 2.5 lpm nc, ABG pH 7.51 H, ABG pCO2 31.1 L, ABG pO2 72.4 L, ABG HCO3 24.3, ABG Total CO2 25.3, ABG O2 Saturation 93, ABG Base Excess 1.3, Royal Test Patient unable 08/14/18 00:15: WBC 3.5 L, RBC 3.01 L, Hgb 8.7 L, Hct 27.5 L, MCV 91.3, MCH 29.0, MCHC 31.8, RDW 21.8 H, Plt Count 79 L, MPV 10.4, Neut % (Auto) 83.7 H, Lymph % (Auto) 11.4, [place] % (Auto) 3.1, Eos % (Auto) 0.8, Baso % (Auto) 1.0, Neut # (Auto) 2.9, Lymph # (Auto) 0.4 L, [place] # (Auto) 0.1, Eos # (Auto) 0.0, Baso # (Auto) 0.0 08/14/18 00:15: Sodium 140, Potassium 4.3, Chloride 103, Carbon Dioxide 22, Anion Gap 19.3 H, BUN 32 H, Creatinine 1.39 H, Estimated Creat Clear 57, Estimated GFR 52 L, Est GFR ( Amer) 63, Glucose 131 H, Calcium 9.5, Total Bilirubin 1.5 H, AST 158 H, ALT 26, Alkaline Phosphatase 373 H, Troponin I < 0.02, C-Reactive Protein 9.1 H, Total Protein 5.6 L, Albumin 1.8 L, Globulin 3.8 H, Albumin/Globulin Ratio 0.5 L, Amylase 23 L 08/14/18 00:15: Lactate 3.6 H 08/14/18 00:15: Lipase 33 L 08/14/18 00:15: Influenza Type A Ag Negative, Influenza Type B Ag Negative 08/14/18 00:35: Urine Color [place], Urine Appearance Cloudy, Urine pH >= 9.0 H, Ur Specific [place] <= 1.005, Urine Protein 2+, Urine Glucose (UA) Negative, Urine Ketones Negative, Urine Blood 3+, Urine Nitrate Positive, Urine Bilirubin Negative, Urine Urobilinogen 1.0, Ur Leukocyte Esterase 2+ A, Urine RBC 20-50, Urine WBC 10-20, Amorphous Sediment 1+, Urine Bacteria 4+ Result diagrams: 08/14/18 00:15 08/14/18 00:15 Orders (Tests/Meds): ED MEDICATIONS Generic Name Dose Route Start Last Admin Trade Name Freq PRN Reason Stop Dose Admin Sodium Chloride 1,000 mls @ 999 mls/hr 08/14/18 00:15 Sod Chlor 0.9% 1000ml Bag IV 08/14/18 01:15 .Q1H1M ASHIA Sodium Chloride 2,180 mls @ 1,090 mls/hr 08/14/18 00:50 08/14/18 00:52 Sod Chlor 0.9% 1000ml Bag 30 ml/kg infuse over 2 hr (2180 ml) 08/14/18 02:49 1,090 mls/hr IV Administration .Q2H ONE Sodium Chloride 10 ml 08/14/18 00:11 Saline Flush 10ml Syringe IV 09/13/18 00:10 NEEDED PRN Maintain IV Site Discontinued Medications Generic Name Dose Route Start Last Admin Trade Name Freq PRN Reason Stop Dose Admin Acetaminophen 650 mg 08/14/18 00:13 08/14/18 00:45 Acetaminophen 650mg Suppository RC 08/14/18 00:14 650 mg ONCE ONE Administration Albuterol/Ipratropium 3 ml 08/14/18 00:24 08/14/18 00:46 Duoneb 3ml Neb IH 08/14/18 00:25 3 ml ONCE ONE Administration Methylprednisolone Sodium Succinate 125 mg 08/14/18 00:24 08/14/18 00:46 Solu-Medrol 125mg/2ml Vial IV 08/14/18 00:25 125 mg ONCE ONE Administration ORDERS Category Date Time Status XR chest portable Stat Exams 08/14/18 00:11 Taken Complete Blood Count Auto Diff Stat Lab 08/14/18 00:15 Results Erythrocyte Sedimentation Rate Stat Lab 08/14/18 00:15 Results Blood Culture Stat Micro 08/14/18 00:15 Received Urine Culture Stat Micro 08/14/18 00:35 Received ECG Request by /Blaise Stat Y 08/14/18 00:11 Ordered - Radiology Data #1 Image(s): Chest Image Reviewed: Yes I reviewed the patient's radiology image Preliminary Findings: Abnormal (see report ) - ECG Data Tracing #1 Arrhythmias present: sinus tach Ischemic changes: non-specific ST-T wave changes - Tissue Perfus/Sepsis Re-Eval Reperfusion Exam Performed: Yes Date Performed: 08/14/18 Time Performed: 01:30 Sepsis Follow-Up: Yes: Respiratory exam, Cardiovascular exam, Capillary refill, Peripheral pulse strength, Skin exam, Vital Signs Resp/SOB HPI - General Chief Complaint: Shortness of Breath/Dyspnea Stated Complaint: shortness of breath Time Seen by Provider: 08/14/18 00:30 Mode of Arrival: EMS Source of Information: Patient, EMS, Medical Record Limitations: Physical Limitations Description of Symptoms (Recalled from ER Triage Doc. by RN): Pt with hx of Lung, Bone, and Liver CA sent [place] from [place] [facility] for reports of difficulty breathing. EMS stated when they arrived, patient was 83% on room air, and does not normally wear oxygen. Pt feels like he has a fever, EMS stated it was 102 axillary en route, was placed on oxygen and o2 sats increased to 90%. - History of Present Illness pt with known t cell lymphoma and has been seen by dr taveras - pt has been dec po intake and dec ambulation - pt with sob and fever weston COON Complaint: shortness of breath Onset (ago): day(s) Context: recent illness Severity: severe Known history of: other (lymphoma ) Treatment prior to arrival: oxygen - Related Data Home Medications Medication Instructions Recorded Confirmed Atorvastatin Calcium [Atorvastatin 10 mg PO DAILY 07/24/18 08/14/18 10mg Tab] Levothyroxine Sodium 50 mcg PO DAILY 07/24/18 08/14/18 [Levothyroxine 50mcg (0.05mg) Tab] Omeprazole [Omeprazole 20mg Tab] 20 mg PO DAILY 07/24/18 08/14/18 risperiDONE [Risperidone] 0.5 mg PO BID 07/24/18 08/14/18 Acetaminophen [Acetaminophen 325mg 650 mg PO Q6HP PRN 07/25/18 08/14/18 tab] Albuterol Sulfate [Proair Hfa 2 puffs IH Q6HP PRN 07/25/18 08/14/18 90mcg/puff Inh] Amino Acids/Protein Hydrolys 30 ml PO DAILY 08/14/18 08/14/18 [Pro-Stat Awc Liquid Packet] Allergies Allergy/AdvReac Type Severity Reaction Status Date / Time No Known Allergies Allergy Verified 08/14/18 00:23 [facility] History - Hepatitis A Screen Drug use history?: No High risk sexual behaviors?: No History of sexually transmitted infection?: No Currently employed?: No Childcare worker?: No Do you have indoor plumbing?: Yes Do you have electricity?: Yes Attestation statement:: This patient has been screened for Hepatitis A risk factors. I have reviewed the patient's past medical history: Yes Medical History: Reports:: Cancer (lung, bones, liver) Denies:: Diabetes Mellitus Type 1, Diabetes Mellitus Type 2, MRSA Other Surgeries: Yes: Colonoscopy Amputation: No - Social History Smoking Status: Current every day smoker # Packs/Day (cigarettes): 1 Alcohol Intake: never Occupational Status: disabled Housing: assisted living facility - Psychiatric History Expresses thoughts of harming self/others: None Suicide Plan Description: No Plan Family Hx:: Unable to obtain ROS Obtained: Yes unobtainable due to mental status Physical Exam - General General appearance: obtunded, cachectic - Head Head exam: normocephalic - Eye Eye exam: Present: PERRL, EOMI. Absent: scleral icterus - ENT ENT exam: Present: mucous membranes dry - Neck Neck exam: Present: trachea midline - Respiratory Respiratory exam: Present: other (dec bs bialt ). Absent: respiratory distress - Cardiovascular Cardiovascular exam: Present: regular rate, systolic murmur - Abdominal Exam Abdominal exam: Present: soft - Extremities Exam Extremities exam: Present: pedal edema - Neurological Exam Neurological exam: Present: other (obtunded with no focal cahnges/posturing ) - Skin Skin exam: Absent: rash
[2018-08-14 00:44] LABS: Alanine Aminotransferase 26 U/L (12-78); Albumin Level 1.8 gm/dL (3.4-5.0); Albumin/Globulin Ratio 0.5 (1.1-1.8); Alkaline Phosphatase 373 U/L (46-116); Amylase 23 U/L (25-115); Anion Gap 19.3 mEq/L (5-15); Aspartate Amino Transferase 158 U/L (15-37); Bilirubin,Total 1.5 mg/dL (0.2-1.0); Blood Urea Nitrogen 32 mg/dL (7-18); C-Reactive Protein 9.1 mg/L (0.0-0.9); Calcium 9.5 mg/dL (8.5-10.1); Carbon Dioxide 22 mmol/L (21.0-32.0); Chloride 103 mmol/L (98-107); Globulin 3.8 gm/dl (1.3-3.2); Glucose 131 mg/dL (74-106); Potassium 4.3 mmoL/L (3.5-5.1); Sodium 140 mmol/L (136-145); Total Protein,Serum 5.6 gm/dL (6.4-8.2)
[2018-08-14 00:45] LABS: Microscopic, Urine URINE MICROSCOPIC (MICROSCOPIC)
[2018-08-14 00:50] LABS: Appearance,Urine CLOUDY (Clear); Bilirubin,Urine Negative (Negative); Blood, Urine 3+ (Negative); Color,Urine ORANGE (Yellow); Glucose,Urine (UA) Negative (Negative); Ketones,Urine Negative (Negative); Leukocyte Esterase,Urine 2+ (Negative); Protein,Urine 2+ (Negative); Specific Gravity, Urine <= 1.005 (1.005-1.030)
[2018-08-14 00:52] LABS: PH,Urine >= 9.0 (5.0-8.5)
[2018-08-14 00:53] LABS: ABG Base Excess 1.3 mmol/L (-2.4-2.3); ABG HCO3 24.3 mmhg (22.0-26.0); ABG Oxygen Saturation 93 % (90-100); ABG PCO2 31.1 mmhg (35.0-45.0); ABG PH 7.51 mmol/L (7.35-7.45); ABG PO2 72.4 mmhg (80-100); ABG TCO2 25.3 mmhg (23-27)
[2018-08-14 00:55] LABS: Allen's Test Patient Unable
[2018-08-14 01:06] LABS: Bacteria,Urine 4+ /lpf; RBC,Urine 20-50 #/hpf (0-3)
[2018-08-14 01:07] LABS: Amorphous Sediment,Urine 1+ /lpf
[2018-08-14 01:23] LABS: Erythrocyte Sedimentation Rate 41 mm/hr (0-20)
[2018-08-14 04:44] LABS: Anion Gap 15.1 mEq/L (5-15); Calcium 8.7 mg/dL (8.5-10.1); Potassium 4.1 mmoL/L (3.5-5.1)
[2018-08-14 05:22] LABS: Basophils % 1.1 % (0.1-2.0); Eosinophils % 0.6 % (0.1-12.0); Lymphocytes # 0.3 K/mm3 (0.7-4.5); Lymphocytes % 12.4 % (10-50); Mean Corpuscular Hemoglobin 28.8 pg (27.0-31.2); Mean Corpuscular Volume 92.9 fl (80-94); Mean Platelet Volume 9.7 fl (7.4-10.4); Monocytes % 1.8 % (1.7-9.3); Neutrophils # 2.1 K/mm3 (1.8-7.8); Neutrophils % 84.1 % (37.0-80.0); Platelet Count 56 K/mm3 (142-424); Red Blood Count 2.45 M/mm3 (4.60-6.20); Red Cell Distribution Width 21.6 % (11.5-17.5); White Blood Count 2.5 K/mm3 (4.8-10.8)
[2018-08-14 05:24] LABS: Hematocrit 22.8 % (42.0-52.0); Hemoglobin 7.1 g/dL (14.1-18.0)
--- NOTE | 2018-08-14 07:26 | Pharmacy Consult Notes ---
[facility] Pharmacy VTE Monitoring - Patient Demographics Admission date: 08/14/18 Report Date: 08/14/18 Time: 07:25 Allergies/Adverse Reactions: Patient Allergies No Known Allergies Allergy (Verified 08/14/18 00:23) Height: 1.68 m Weight: 64.467 kg Patient Problems: Current Active Problems Hypothyroidism (Acute) Schizophrenia (Acute) Severe sepsis (Acute) Septic shock (Acute) Pancytopenia (Acute) HCAP (healthcare-associated pneumonia) (Acute) UTI (urinary tract infection) (Acute) T-cell lymphoma (Acute) - VTE Risk Labs: VTE Related Lab Results Hgb 7.1 g/dL (14.1-18.0) L* 08/14/18 04:30 Hct 22.8 % (42.0-52.0) L* 08/14/18 04:30 Plt Count 56 K/mm3 (142-424) L D 08/14/18 04:30 BUN 31 mg/dL (7-18) H 08/14/18 04:30 Creatinine 1.23 mg/dL (0.70-1.30) 08/14/18 04:30 Estimated Creat Clear 65 mL/min (50-200) 08/14/18 04:30 Was VTE Risk Assessment Performed: Yes VTE Score: 3 VTE Risk Level: Low Risk Clinical Trial Participant: No - Prophylaxis VTE Prophylaxis Ordered?: Yes Types of VTE Prophylaxis: TEDS Knee High Location of Applied Device: Bilateral Lower Extremeties
--- NOTE | 2018-08-14 08:18 | Pharmacy Consult Notes ---
- Pharmacy Consult Date: 08/14/18 Time: 08:17 Referring provider: DR. PARADA Reason for Consult:: VANCOMYCIN DOSING Allergies and ADEs:: Allergies Allergy/AdvReac Type Severity Reaction Status Date / Time No Known Allergies Allergy Verified 08/14/18 00:23 Home Medications:: Home Medications Medication Instructions Recorded Confirmed Type Atorvastatin Calcium [Atorvastatin 10 mg PO DAILY 07/24/18 08/14/18 History 10mg Tab] Levothyroxine Sodium 50 mcg PO DAILY 07/24/18 08/14/18 History [Levothyroxine 50mcg (0.05mg) Tab] Omeprazole [Omeprazole 20mg Tab] 20 mg PO DAILY 07/24/18 08/14/18 History risperiDONE [Risperidone] 0.5 mg PO BID 07/24/18 08/14/18 History Acetaminophen [Acetaminophen 325mg 650 mg PO Q6HP PRN 07/25/18 08/14/18 History tab] Albuterol Sulfate [Proair Hfa 2 puffs IH Q6HP PRN 07/25/18 08/14/18 History 90mcg/puff Inh] Amino Acids/Protein Hydrolys 30 ml PO DAILY 08/14/18 08/14/18 History [Pro-Stat Awc Liquid Packet] Height: 1.68 m Weight: 64.467 kg Laboratory Results:: Laboratory Results - last 24 hr 08/14/18 00:12: Specimen Source Right radial, O2 % 30%, 2.5 lpm nc, ABG pH 7.51 H, ABG pCO2 31.1 L, ABG pO2 72.4 L, ABG HCO3 24.3, ABG Total CO2 25.3, ABG O2 Saturation 93, ABG Base Excess 1.3, Royal Test Patient unable 08/14/18 00:15: WBC 3.5 L, RBC 3.01 L, Hgb 8.7 L, Hct 27.5 L, MCV 91.3, MCH 29.0, MCHC 31.8, RDW 21.8 H, Plt Count 79 L, MPV 10.4, Neut % (Auto) 83.7 H, Lymph % (Auto) 11.4, [place] % (Auto) 3.1, Eos % (Auto) 0.8, Baso % (Auto) 1.0, Neut # (Auto) 2.9, Lymph # (Auto) 0.4 L, [place] # (Auto) 0.1, Eos # (Auto) 0.0, Baso # (Auto) 0.0, ESR 41 H 08/14/18 00:15: Sodium 140, Potassium 4.3, Chloride 103, Carbon Dioxide 22, Anion Gap 19.3 H, BUN 32 H, Creatinine 1.39 H, Estimated Creat Clear 57, Estimated GFR 52 L, Est GFR ( Amer) 63, Glucose 131 H, Calcium 9.5, Total Bilirubin 1.5 H, AST 158 H, ALT 26, Alkaline Phosphatase 373 H, Troponin I < 0.02, C-Reactive Protein 9.1 H, Total Protein 5.6 L, Albumin 1.8 L, Globulin 3.8 H, Albumin/Globulin Ratio 0.5 L, Amylase 23 L 08/14/18 00:15: Lactate 3.6 H 08/14/18 00:15: Lipase 33 L 08/14/18 00:15: Influenza Type A Ag Negative, Influenza Type B Ag Negative 08/14/18 00:35: Urine Color [place], Urine Appearance Cloudy, Urine pH >= 9.0 H, Ur Specific [place] <= 1.005, Urine Protein 2+, Urine Glucose (UA) Negative, Urine Ketones Negative, Urine Blood 3+, Urine Nitrate Positive, Urine Bilirubin Negative, Urine Urobilinogen 1.0, Ur Leukocyte Esterase 2+ A, Urine RBC 20-50, Urine WBC 10-20, Amorphous Sediment 1+, Urine Bacteria 4+ 08/14/18 04:30: WBC 2.5 L D, RBC 2.45 L, Hgb 7.1 L*, Hct 22.8 L*, MCV 92.9, MCH 28.8, MCHC 31.0 L, RDW 21.6 H, Plt Count 56 L D, MPV 9.7, Neut % (Auto) 84.1 H, Lymph % (Auto) 12.4, [place] % (Auto) 1.8, Eos % (Auto) 0.6, Baso % (Auto) 1.1, Neut # (Auto) 2.1, Lymph # (Auto) 0.3 L, [place] # (Auto) 0.0 L, Eos # (Auto) 0.0, Baso # (Auto) 0.0 08/14/18 04:30: Sodium 142, Potassium 4.1, Chloride 108 H, Carbon Dioxide 23, Anion Gap 15.1 H, BUN 31 H, Creatinine 1.23, Estimated Creat Clear 65, Estimated GFR 60, Est GFR ( Amer) 72, Glucose 142 H, Calcium 8.7 08/14/18 04:30: Lactate 2.5 H 08/14/18 06:30: Lactate 2.6 H Medical History: Reports:: Cancer (lung, bone, liver), Heart Murmur, Hyperlipidemia Denies:: Diabetes Mellitus Type 1, Diabetes Mellitus Type 2, MRSA Assessment and Plan - Assessment and plan all Dx Assessment and Plan for all problems:: BASED ON PATIENT'S FACTORS, RECOMMEND CONTINUING WITH VANCOMYCIN 1250 MG Q18H AT THIS TIME. PHARMACY WILL FOLLOW DAILY AND ADJUST APPROPRIATE. ROBBIE ROJAS, PHARMD
--- NOTE | 2018-08-14 09:24 | History & Physical Report ---
*Admission Date: 08/14/18 *Chief complaint: soa *History of present illness: 62-year-old male with hx of T-cell lymphoma with metastatic disease seen by Dr. Shahid sent over from [facility] for reports of difficulty breathing. EMS stated when they arrived, patient was 83% on room air, and does not normally wear oxygen. EMS stated fever of 102 axillary en route, was placed on oxygen and o2 sats increased to 90%. Patient admitted for bilateral infiltrates. [facility] History I have reviewed the patient's past medical history: Yes Medical History: Reports:: Cancer (lung, bone, liver), Heart Murmur, Hyperlipidemia Denies:: Diabetes Mellitus Type 1, Diabetes Mellitus Type 2, MRSA *Have you ever received a pneumonia vaccine?: Yes *Have you received a flu vaccine this season?: Yes Other Surgeries: Yes: Colonoscopy Amputation: No - *Social History Smoking Status: Current every day smoker Tobacco Type: cigarettes # Packs/Day (cigarettes): 1 Alcohol Intake: never *Occupational Status:: disabled Housing: fpc Household Members: caregiver, other *Travel in the last 8 weeks: None - Psychiatric History Expresses thoughts of harming self/others: None Suicide Plan Description: No Plan Family Hx:: Unable to obtain Review of Systems - Review of Systems Review of systems:: pertinent systems reviewed and negative unless documented below - Constitutional Reports fever(s), Reports weakness - Eyes Denies change in vision - ENT Denies lip swelling - *Cardiovascular Reports shortness of breath - *Respiratory Reports shortness of breath - *Gastrointestinal Denies nausea, Denies vomiting - *Genitourinary Denies urinary frequency - *Musculoskeletal Denies neck pain - Integumentary/Breasts Denies rash - *Neurologic Denies loss of vision - Psychiatric Denies lack of enjoyment, Denies anxiety - Endocrine Denies flushing - Hematologic/Lymphatic Denies enlarged lymph nodes - Allergic/Immunologic Denies lip swelling Meds Home Medications Medication Instructions Recorded Confirmed Type Atorvastatin Calcium [Atorvastatin 10 mg PO DAILY 07/24/18 08/14/18 History 10mg Tab] Levothyroxine Sodium 50 mcg PO DAILY 07/24/18 08/14/18 History [Levothyroxine 50mcg (0.05mg) Tab] Omeprazole [Omeprazole 20mg Tab] 20 mg PO DAILY 07/24/18 08/14/18 History risperiDONE [Risperidone] 0.5 mg PO BID 07/24/18 08/14/18 History Acetaminophen [Acetaminophen 325mg 650 mg PO Q6HP PRN 07/25/18 08/14/18 History tab] Albuterol Sulfate [Proair Hfa 2 puffs IH Q6HP PRN 07/25/18 08/14/18 History 90mcg/puff Inh] Amino Acids/Protein Hydrolys 30 ml PO DAILY 08/14/18 08/14/18 History [Pro-Stat Awc Liquid Packet] Allergies Allergy/AdvReac Type Severity Reaction Status Date / Time No Known Allergies Allergy Verified 08/14/18 00:23 Exam Vital signs and Labs for Last 24 Hours: Temp Pulse Resp BP Pulse Ox 97.1 F L 83 16 105/65 L 94 L 08/14/18 07:58 08/14/18 07:58 08/14/18 08:00 08/14/18 07:59 08/14/18 08:00 Laboratory Results - last 24 hr 08/14/18 00:12: Specimen Source Right radial, O2 % 30%, 2.5 lpm nc, ABG pH 7.51 H, ABG pCO2 31.1 L, ABG pO2 72.4 L, ABG HCO3 24.3, ABG Total CO2 25.3, ABG O2 Saturation 93, ABG Base Excess 1.3, Royal Test Patient unable 08/14/18 00:15: WBC 3.5 L, RBC 3.01 L, Hgb 8.7 L, Hct 27.5 L, MCV 91.3, MCH 29.0, MCHC 31.8, RDW 21.8 H, Plt Count 79 L, MPV 10.4, Neut % (Auto) 83.7 H, Lymph % (Auto) 11.4, [place] % (Auto) 3.1, Eos % (Auto) 0.8, Baso % (Auto) 1.0, Neut # (Auto) 2.9, Lymph # (Auto) 0.4 L, [place] # (Auto) 0.1, Eos # (Auto) 0.0, Baso # (Auto) 0.0, ESR 41 H 08/14/18 00:15: Sodium 140, Potassium 4.3, Chloride 103, Carbon Dioxide 22, Anion Gap 19.3 H, BUN 32 H, Creatinine 1.39 H, Estimated Creat Clear 57, Estimated GFR 52 L, Est GFR ( Amer) 63, Glucose 131 H, Calcium 9.5, Total Bilirubin 1.5 H, AST 158 H, ALT 26, Alkaline Phosphatase 373 H, Troponin I < 0.02, C-Reactive Protein 9.1 H, Total Protein 5.6 L, Albumin 1.8 L, Globulin 3.8 H, Albumin/Globulin Ratio 0.5 L, Amylase 23 L 08/14/18 00:15: Lactate 3.6 H 08/14/18 00:15: Lipase 33 L 08/14/18 00:15: Influenza Type A Ag Negative, Influenza Type B Ag Negative 08/14/18 00:35: Urine Color [place], Urine Appearance Cloudy, Urine pH >= 9.0 H, Ur Specific [place] <= 1.005, Urine Protein 2+, Urine Glucose (UA) Negative, Urine Ketones Negative, Urine Blood 3+, Urine Nitrate Positive, Urine Bilirubin Negative, Urine Urobilinogen 1.0, Ur Leukocyte Esterase 2+ A, Urine RBC 20-50, Urine WBC 10-20, Amorphous Sediment 1+, Urine Bacteria 4+ 08/14/18 04:30: WBC 2.5 L D, RBC 2.45 L, Hgb 7.1 L*, Hct 22.8 L*, MCV 92.9, MCH 28.8, MCHC 31.0 L, RDW 21.6 H, Plt Count 56 L D, MPV 9.7, Neut % (Auto) 84.1 H, Lymph % (Auto) 12.4, [place] % (Auto) 1.8, Eos % (Auto) 0.6, Baso % (Auto) 1.1, Neut # (Auto) 2.1, Lymph # (Auto) 0.3 L, [place] # (Auto) 0.0 L, Eos # (Auto) 0.0, Baso # (Auto) 0.0 08/14/18 04:30: Sodium 142, Potassium 4.1, Chloride 108 H, Carbon Dioxide 23, Anion Gap 15.1 H, BUN 31 H, Creatinine 1.23, Estimated Creat Clear 65, Estimated GFR 60, Est GFR ( Amer) 72, Glucose 142 H, Calcium 8.7 08/14/18 04:30: Lactate 2.5 H 08/14/18 06:30: Lactate 2.6 H I & O for Last 24 hours: Intake & Output 08/11/18 08/12/18 08/13/18 08/14/18 11:59 11:59 11:59 11:59 Intake Total 2560 / 2560 Output Total 650 / 650 Balance 1909 / 1909 Weight 142 lb 2 oz - Constitutional no acute distress, thin, chronically ill appearing - *Routine HEENT Exam Head: Present: normocephalic Eye: Present: EOMI, PERRL ENT: Present: mucous membranes moist - *Routine Neck Exam Present: supple. Absent: lymphadenopathy - *Routine Respiratory Exam Present: CTA bilaterally - *Routine Cardiovascular Exam Present: RRR - *Routine Abdominal Exam Present: soft, normoactive bowel sounds. Absent: tenderness - *Routine Exam Comments: Rao draining at bedside small blood clots present in tubing - *Routine Extremities Exam Absent: cyanosis, clubbing, edema - *Routine Skin Exam Present: warm. Absent: rash Comments: pale - *Routine Neurological Exam Present: alert, oriented X3 - Routine Psychiatric Exam Present: normal affect Assessment and Plan - Assessment and plan all Dx Assessment and Plan for all problems:: Dr. Black will round later today all orders per Dr. Black Discussed with patient regarding hospice will ask hospice to consult on patient Care management consult
[2018-08-15 07:30] LABS: Anion Gap 13.8 mEq/L (5-15); Potassium 3.8 mmoL/L (3.5-5.1)
[2018-08-15 07:34] LABS: Basophils % 0.7 % (0.1-2.0); Eosinophils % 0.3 % (0.1-12.0); Lymphocytes # 0.2 K/mm3 (0.7-4.5); Lymphocytes % 8.1 % (10-50); Mean Corpuscular HGB Conc 29.9 g/dL (31.8-35.4); Mean Corpuscular Hemoglobin 28.5 pg (27.0-31.2); Mean Corpuscular Volume 95.3 fl (80-94); Mean Platelet Volume 10.1 fl (7.4-10.4); Monocytes # 0.1 K/mm3 (0.1-1.0); Monocytes % 3.8 % (1.7-9.3); Neutrophils # 2.2 K/mm3 (1.8-7.8); Neutrophils % 87.2 % (37.0-80.0); Red Blood Count 2.31 M/mm3 (4.60-6.20); Red Cell Distribution Width 21.8 % (11.5-17.5); White Blood Count 2.5 K/mm3 (4.8-10.8)
[2018-08-15 08:21] LABS: Hemoglobin 6.6 g/dL (14.1-18.0); Platelet Count 50 K/mm3 (142-424)
[2018-08-15 08:31] LABS: Lymphocytes % 7 % (10-50); Monocytes % 2 % (2-9); Neutrophils % 91 % (42-76); Total Cells Counted 100
--- NOTE | 2018-08-15 16:54 | Progress Note ---
Internal Medicine - PN: Subj *Date: 08/16/18 *Time: 07:44 Interval history: more alert doing better with less fever - ivf and abx Exam Vital signs and Labs for Last 24 Hours: Temp Pulse Resp BP Pulse Ox 97.6 F 107 H 16 96/59 L 96 08/15/18 15:49 08/15/18 15:49 08/15/18 15:49 08/15/18 15:49 08/15/18 15:49 Laboratory Results - last 24 hr 08/14/18 00:35: Urine Color [place], Urine Appearance Cloudy, Urine pH >= 9.0 H, Ur Specific [place] <= 1.005, Urine Protein 2+, Urine Glucose (UA) Negative, Urine Ketones Negative, Urine Blood 3+, Urine Nitrate Positive, Urine Bilirubin Negative, Urine Urobilinogen 1.0, Ur Leukocyte Esterase 2+ A, Urine RBC 20-50, Urine WBC 10-20, Amorphous Sediment 1+, Urine Bacteria 4+ 08/15/18 06:30: WBC 2.5 L, RBC 2.31 L, Hgb 6.6 L*, Hct 22.0 L*, MCV 95.3 H, MCH 28.5, MCHC 29.9 L, RDW 21.8 H, Plt Count 50 L, MPV 10.1, Neut % (Auto) 87.2 H, Lymph % (Auto) 8.1 L, [place] % (Auto) 3.8, Eos % (Auto) 0.3, Baso % (Auto) 0.7, Neut # (Auto) 2.2, Lymph # (Auto) 0.2 L, [place] # (Auto) 0.1, Eos # (Auto) 0.0, Baso # (Auto) 0.0, Total Counted 100, Neutrophils % (Manual) 91 H, Lymphocytes % (Manual) 7 L, Monocytes % (Manual) 2, Platelet Estimate Marked decrease 08/15/18 06:30: Sodium 142, Potassium 3.8, Chloride 109 H, Carbon Dioxide 23, Anion Gap 13.8, BUN 34 H, Creatinine 1.09, Estimated Creat Clear 66, Estimated GFR 69, Est GFR ( Amer) 83, Glucose 101, Calcium 9.0 I & O for Last 24 hours: Intake & Output 08/13/18 08/14/18 08/15/18 08/16/18 11:59 11:59 11:59 11:59 Intake Total 2560 / 2560 802 / 802 872 / 872 Output Total 650 / 650 900 / 900 Balance 1909 / 1909 -98 / -98 872 / 872 Weight 142 lb 2 oz 144 lb 8 oz 144 lb 7.996 oz Microbiology Reports for the Last 24 Hours: Microbiology 08/14/18 00:35 Urine,Clean Catch Urine Culture - Preliminary Gram Negative Rods - Constitutional somnolent - *Routine HEENT Exam Head: Present: normocephalic Eye: Present: EOMI, PERRL. Absent: conjunctival icterus ENT: Present: mucous membranes dry - *Routine Neck Exam Present: supple - *Routine Respiratory Exam Absent: decreased breath sounds - *Routine Cardiovascular Exam Present: RRR, murmur - *Routine Abdominal Exam Present: soft - *Routine Extremities Exam Absent: calf tenderness - *Routine Skin Exam Present: intact - *Routine Neurological Exam Present: CN II-XII intact, altered mental status - Routine Psychiatric Exam Present: unable to assess Assessment and Plan (1) C. difficile enteritis Current visit: Yes Status: Acute Category: Medical Code(s): A04.72 - Enterocolitis due to Clostridium difficile, not specified as recurrent
[2018-08-16 07:17] LABS: Basophils % 0.9 % (0.1-2.0); Eosinophils % 0.8 % (0.1-12.0); Lymphocytes # 0.2 K/mm3 (0.7-4.5); Lymphocytes % 10.9 % (10-50); Mean Corpuscular HGB Conc 31.4 g/dL (31.8-35.4); Mean Corpuscular Hemoglobin 29.1 pg (27.0-31.2); Mean Corpuscular Volume 92.8 fl (80-94); Mean Platelet Volume 9.9 fl (7.4-10.4); Monocytes % 2.6 % (1.7-9.3); Neutrophils # 1.5 K/mm3 (1.8-7.8); Neutrophils % 84.9 % (37.0-80.0); Red Blood Count 2.38 M/mm3 (4.60-6.20); Red Cell Distribution Width 21.6 % (11.5-17.5); White Blood Count 1.7 K/mm3 (4.8-10.8)
[2018-08-16 07:18] LABS: Anion Gap 15.4 mEq/L (5-15); Calcium 9.1 mg/dL (8.5-10.1); Potassium 3.4 mmoL/L (3.5-5.1)
[2018-08-16 08:01] LABS: Hematocrit 22.1 % (42.0-52.0); Hemoglobin 6.9 g/dL (14.1-18.0); Platelet Count 45 K/mm3 (142-424)
--- NOTE | 2018-08-16 08:59 | Discharge Summary ---
General - General Admission date:: 08/14/18 Discharge date: 08/16/18 HPI HPI: 62-year-old male with hx of T-cell lymphoma with metastatic disease seen by Dr. Shahid sent over from [facility] for reports of difficulty breathing. EMS stated when they arrived, patient was 83% on room air, and does not normally wear oxygen. EMS stated fever of 102 axillary en route, was placed on oxygen and o2 sats increased to 90%. Patient admitted for bilateral infiltrates. Hospital Course Hospital Course: chest x ray:IMPRESSION: Bilateral lower lobe pneumonia with small bilateral blood cx neg DNR status with hospice. Patient will be discharged back to [facility] with hospice. Will continue p.o. antibiotics for C. difficile. Objective Vital signs: Temp Pulse Resp BP Pulse Ox 97.7 F 111 H 16 113/70 95 08/16/18 08:00 08/16/18 08:00 08/16/18 08:00 08/16/18 08:00 08/16/18 08:00 no acute distress, thin, chronically ill appearing - *Routine HEENT Exam Head: Present: normocephalic Eye: Present: PERRL ENT: Present: mucous membranes moist - *Routine Respiratory Exam Present: CTA bilaterally - *Routine Cardiovascular Exam Present: RRR - *Routine Abdominal Exam Present: soft, normoactive bowel sounds - *Routine Extremities Exam Present: full ROM - *Routine Skin Exam Present: intact, pallor - *Routine Neurological Exam Present: alert, oriented X3 - Routine Psychiatric Exam Present: normal affect Results Labs on day of discharge: Labs from last 24 hours 08/16/18 08/16/18 08/16/18 06:49 06:49 02:37 WBC 1.7 L* D RBC 2.38 L Hgb 6.9 L* Hct 22.1 L* MCV 92.8 MCH 29.1 MCHC 31.4 L RDW 21.6 H Plt Count 45 L* MPV 9.9 Neut % (Auto) 84.9 H Lymph % (Auto) 10.9 [place] % (Auto) 2.6 Eos % (Auto) 0.8 Baso % (Auto) 0.9 Neut # (Auto) 1.5 L Lymph # (Auto) 0.2 L [place] # (Auto) 0.0 L Eos # (Auto) 0.0 Baso # (Auto) 0.0 Sodium 143 Potassium 3.4 L Chloride 109 H Carbon Dioxide 22 Anion Gap 15.4 H BUN 29 H Creatinine 0.98 Estimated Creat Clear 70 Estimated GFR 78 Est GFR ( Amer) 94 Glucose 101 Calcium 9.1 Stl Aeromonas (PCR) Stl C. cayetanensis PCR Stool Rotavirus (PCR) Stl Adenov F 40/41 PCR Stool Astrovirus (PCR) Stool Campylobacter PCR Stl C.difficile Tox PCR Stool Cryptosporidium PCR Stl E.coli Shiga Tox PCR Stool E coli O157 PCR Stl Enterotoxigenic E PCR Stool EPEC (PCR) Stool EAEC (PCR) Stl E. histolytica PCR Stool Giardia Lamblia PCR Stool Salmonella PCR Stool Sapovirus (PCR) Stl P. shigelloides PCR Stl Shigella/EIEC PCR St Y.enterocolitica PCR Stool Vibrio (PCR) Stl Vibrio cholerae PCR Stl Norovirus GI/GII PCR Vancomycin Trough 16.6 08/15/18 18:30 WBC RBC Hgb Hct MCV MCH MCHC RDW Plt Count MPV Neut % (Auto) Lymph % (Auto) [place] % (Auto) Eos % (Auto) Baso % (Auto) Neut # (Auto) Lymph # (Auto) [place] # (Auto) Eos # (Auto) Baso # (Auto) Sodium Potassium Chloride Carbon Dioxide Anion Gap BUN Creatinine Estimated Creat Clear Estimated GFR Est GFR ( Amer) Glucose Calcium Stl Aeromonas (PCR) Not detected Stl C. cayetanensis PCR Not detected Stool Rotavirus (PCR) Not detected Stl Adenov F 40/41 PCR Not detected Stool Astrovirus (PCR) Not detected Stool Campylobacter PCR Not detected Stl C.difficile Tox PCR Detected A Stool Cryptosporidium PCR Not detected Stl E.coli Shiga Tox PCR Not detected Stool E coli O157 PCR Not detected Stl Enterotoxigenic E PCR Not detected Stool EPEC (PCR) Not detected Stool EAEC (PCR) Not detected Stl E. histolytica PCR Not detected Stool Giardia Lamblia PCR Not detected Stool Salmonella PCR Not detected Stool Sapovirus (PCR) Not detected Stl P. shigelloides PCR Not detected Stl Shigella/EIEC PCR Not detected St Y.enterocolitica PCR Not detected Stool Vibrio (PCR) Not detected Stl Vibrio cholerae PCR Not detected Stl Norovirus GI/GII PCR Not detected Vancomycin Trough Preliminary micro results at discharge 04/16/19 00:15 Blood Culture - Preliminary Blood NO GROWTH AFTER 48 HOURS 08/14/18 00:15 Blood Culture - Preliminary Blood NO GROWTH AFTER 48 HOURS 08/14/18 00:35 Urine Culture - Preliminary Urine,Clean Catch Gram Negative Rods - Additional Comments Rounded with Dr. Black all orders per Wayne DS: Diagnosis - Discharge Diagnosis (1) C. difficile enteritis Status: Acute Discharge Plan - Patient Discharge Instructions ACTIVITY: Continue current activity DIET: continue same diet Patient Instructions: Pneumonia-Adult, Pneumococcal Vaccine, DI for Pneumonia -- Adult, DI for Urinary Tract Infection (UTI), DI for Sepsis -- Adult, DI for Pancytopenia - Follow up Plan Follow up with: Mary Negrete APRN [Advanced Practice Nurse] - Disposition: [facility] Home Medications: Home Medications Medication Instructions Recorded Confirmed Type Atorvastatin Calcium [Atorvastatin 10 mg PO DAILY 07/24/18 08/14/18 History 10mg Tab] Levothyroxine Sodium 50 mcg PO DAILY 07/24/18 08/14/18 History [Levothyroxine 50mcg (0.05mg) Tab] Omeprazole [Omeprazole 20mg Tab] 20 mg PO DAILY 07/24/18 08/14/18 History risperiDONE [Risperidone] 0.5 mg PO BID 07/24/18 08/14/18 History Acetaminophen [Acetaminophen 325mg 650 mg PO Q6HP PRN 07/25/18 08/14/18 History tab] Albuterol Sulfate [Proair Hfa 2 puffs IH Q6HP PRN 07/25/18 08/14/18 History 90mcg/puff Inh] Amino Acids/Protein Hydrolys 30 ml PO DAILY 08/14/18 08/14/18 History [Pro-Stat Awc Liquid Packet] levoFLOXacin [Levaquin 500mg 500 mg PO DAILY #10 tab 08/16/18 Rx tab] metroNIDAZOLE [Flagyl 500mg 500 mg PO Q8H 10 Days #30 tab 08/16/18 Rx Tablet] Prescriptions/Medication Reconciliation: New levoFLOXacin [Levaquin 500mg tab] 500 mg PO DAILY #10 tab metroNIDAZOLE [Flagyl 500mg Tablet] 500 mg PO Q8H 10 Days #30 tab Continued Levothyroxine Sodium [Levothyroxine 50mcg (0.05mg) Tab] 50 mcg PO DAILY risperiDONE [Risperidone] 0.5 mg PO BID Atorvastatin Calcium [Atorvastatin 10mg Tab] 10 mg PO DAILY Albuterol Sulfate [Proair Hfa 90mcg/puff Inh] 2 puffs IH Q6HP PRN PRN Reason: Shortness Of Breath Or Wheezing Acetaminophen [Acetaminophen 325mg tab] 650 mg PO Q6HP PRN PRN Reason: As Needed For Fever Or Pain Amino Acids/Protein Hydrolys [Pro-Stat Awc Liquid Packet] 30 ml PO DAILY Omeprazole [Omeprazole 20mg Tab] 20 mg PO DAILY
--- NOTE | 2018-08-16 09:45 | Pharmacy Consult Notes ---
- Pharmacy Consult Date: 08/16/18 Time: 09:44 Referring provider: DR. PARADA Reason for Consult:: VANCOMYCIN TROUGH LEVEL Allergies and ADEs:: Allergies Allergy/AdvReac Type Severity Reaction Status Date / Time No Known Allergies Allergy Verified 08/14/18 00:23 Home Medications:: Home Medications Medication Instructions Recorded Confirmed Type Atorvastatin Calcium [Atorvastatin 10 mg PO DAILY 07/24/18 08/14/18 History 10mg Tab] Levothyroxine Sodium 50 mcg PO DAILY 07/24/18 08/14/18 History [Levothyroxine 50mcg (0.05mg) Tab] Omeprazole [Omeprazole 20mg Tab] 20 mg PO DAILY 07/24/18 08/14/18 History risperiDONE [Risperidone] 0.5 mg PO BID 07/24/18 08/14/18 History Acetaminophen [Acetaminophen 325mg 650 mg PO Q6HP PRN 07/25/18 08/14/18 History tab] Albuterol Sulfate [Proair Hfa 2 puffs IH Q6HP PRN 07/25/18 08/14/18 History 90mcg/puff Inh] Amino Acids/Protein Hydrolys 30 ml PO DAILY 08/14/18 08/14/18 History [Pro-Stat Awc Liquid Packet] levoFLOXacin [Levaquin 500mg 500 mg PO DAILY #10 tab 08/16/18 Rx tab] metroNIDAZOLE [Flagyl 500mg 500 mg PO Q8H 10 Days #30 tab 08/16/18 Rx Tablet] Height: 1.88 m Weight: 64.013 kg Laboratory Results:: Laboratory Results - last 24 hr 08/15/18 18:30: Stl Aeromonas (PCR) Not detected, Stl C. cayetanensis PCR Not detected, Stool Rotavirus (PCR) Not detected, Stl Adenov F 40/41 PCR Not detected, Stool Astrovirus (PCR) Not detected, Stool Campylobacter PCR Not detected, Stl C.difficile Tox PCR Detected A, Stool Cryptosporidium PCR Not detected, Stl E.coli Shiga Tox PCR Not detected, Stool E coli O157 PCR Not detected, Stl Enterotoxigenic E PCR Not detected, Stool EPEC (PCR) Not detected, Stool EAEC (PCR) Not detected, Stl E. histolytica PCR Not detected, Stool Giardia Lamblia PCR Not detected, Stool Salmonella PCR Not detected, Stool Sapovirus (PCR) Not detected, Stl P. shigelloides PCR Not detected, Stl Shigella/EIEC PCR Not detected, St Y.enterocolitica PCR Not detected, Stool Vibrio (PCR) Not detected, Stl Vibrio cholerae PCR Not detected, Stl Norovirus GI/GII PCR Not detected 08/16/18 02:37: Vancomycin Trough 16.6 08/16/18 06:49: WBC 1.7 L* D, RBC 2.38 L, Hgb 6.9 L*, Hct 22.1 L*, MCV 92.8, MCH 29.1, MCHC 31.4 L, RDW 21.6 H, Plt Count 45 L*, MPV 9.9, Neut % (Auto) 84.9 H, Lymph % (Auto) 10.9, [place] % (Auto) 2.6, Eos % (Auto) 0.8, Baso % (Auto) 0.9, Neut # (Auto) 1.5 L, Lymph # (Auto) 0.2 L, [place] # (Auto) 0.0 L, Eos # (Auto) 0.0, Baso # (Auto) 0.0 08/16/18 06:49: Sodium 143, Potassium 3.4 L, Chloride 109 H, Carbon Dioxide 22, Anion Gap 15.4 H, BUN 29 H, Creatinine 0.98, Estimated Creat Clear 70, Estimated GFR 78, Est GFR ( Amer) 94, Glucose 101, Calcium 9.1 Medical History: Reports:: Cancer (lung, bone, liver), Heart Murmur, Hyperlipidemia Denies:: Diabetes Mellitus Type 1, Diabetes Mellitus Type 2, MRSA Assessment and Plan (1) C. difficile enteritis Current visit: Yes Status: Acute Category: Medical Code(s): A04.72 - Enterocolitis due to Clostridium difficile, not specified as recurrent - Assessment and plan all Dx Assessment and Plan for all problems:: BASED ON VANCOMYCIN TROUGH LEVEL AND PATIENT FACTORS, RECOMMEND CONTINUING VANCOMYCIN 1250 MG IV Q18H. PATIENT IS BEING DISCHARGED TO [facility] TODAY.
== END 2018-08-16 12:20 | disposition hospice, inpatient (51) | DRG 194 ==
LOC: ER 00:06 → 2ND 01:35
PROVIDERS: ADMIT Emergency Medicine; ATTEND Emergency Medicine
DX: J18.9 Pneumonia, unspecified organism; C78.00 Secondary malignant neoplasm of unspecified lung; C78.7 Secondary malignant neoplasm of liver and intrahepatic bile duct; Z79.899 Other long term (current) drug therapy; A04.72 Enterocolitis due to Clostridium difficile, not specified as recurrent; C84.45 Peripheral T-cell lymphoma, not elsewhere classified, lymph nodes of inguinal region and lower limb; C79.51 Secondary malignant neoplasm of bone; Z72.0 Tobacco use
CPT/HCPCS: 36415; 71010; 71045; 80048; 80053; 80202; 81001; 82150; 82803; 83605; 83690; 84484; 85007; 85025; 85651; 86140; 87040; 87086; 87088; 87186; 87275; 87276; 87507; 93005; 96365; 96366; 96367; 96375; 99285; J1956; J3370